=== PATIENT | female | born 1940 | race Two or more races ===

== ENCOUNTER 2022-10-21 10:16 | Inpatient (IN) | payer MEDICARE ==
[2022-10-21 10:47] LABS: Glucose,Whole Blood 158 mg/dL (70-110)
--- NOTE | 2022-10-21 11:21 | ED ---
Chest Pain HPI - General Chief Complaint: Chest Pain Stated Complaint: Chest Pain Time Seen by Provider: 10/21/22 10:25 Source: patient, EMS Mode of arrival: EMS - History of Present Illness Initial Comments: 81-year-old female past history of breast cancer and right-sided lumpectomy, hypertension, diabetes who presents to the emergency department reporting chest pain. States that it started 30 minutes prior to hospital arrival. Pain was located over the left chest wall with radiation to her left jaw and left arm. She has a history of A. fib however had an ablation greater than 10 years ago and has not had any issues. Follows with Dr. Tian. She denies coronary disease. No fevers chills or cough. No alert 70 swelling. No history of DVT or PE. EMS did provide her with 4 aspirins and a nitro. Arrives and states her pain is essentially gone at this time. - Related Data Home Medications Medication Instructions Recorded Confirmed Albuterol Sulfate [Albuterol 2 puff PO RT-Q6H PRN 10/21/22 10/21/22 Sulfate Hfa] Ammonium Lactate Lotion 1 applic TOPICAL BID PRN 10/21/22 10/21/22 [Lac-Hydrin 12% Lotion] Atorvastatin Calcium [Lipitor] 40 mg PO HS 10/21/22 10/21/22 Calcium Carbonate [Tums] 1,500 mg PO DAILY 10/21/22 10/21/22 Cholecalciferol [Vitamin D3 (25 50 mcg PO DAILY 10/21/22 10/21/22 Mcg = 1000 Iu)] Fexofenadine HCl [Astrid Allergy] 180 mg PO DAILY 10/21/22 10/21/22 Glimepiride [Amaryl] 2 mg PO DAILY 10/21/22 10/21/22 Glimepiride [Amaryl] 6 mg PO HS 10/21/22 10/21/22 L.acidoph,Paracasei, B.lactis 1 cap PO DAILY 10/21/22 10/21/22 [Probiotic] Letrozole [Femara] 2.5 mg PO DAILY 10/21/22 10/21/22 Vit C/E/Zn/Coppr/Lutein/Zeaxan 1 cap PO BID 10/21/22 10/21/22 [Preservision Areds 2 Softgel] carvediloL [Coreg] 12.5 mg PO BID 10/21/22 10/21/22 metFORMIN HCL [Glucophage] 1,000 mg PO BID 10/21/22 10/21/22 Previous Rx's Medication Instructions Recorded Apixaban [Eliquis] 2.5 mg PO BID 30 Days #60 tab 10/23/22 Clopidogrel [Plavix] 75 mg PO DAILY@2100 30 Days #30 tab 10/23/22 Isosorbide Mononitrate ER [Imdur] 30 mg PO DAILY 30 Days #30 tab 10/23/22 amLODIPine [Norvasc] 2.5 mg PO BID 30 Days #60 tab 10/23/22 Allergies Allergy/AdvReac Type Severity Reaction Status Date / Time bacitracin Allergy Rash/Hives Verified 10/21/22 11:28 [From Neosporin ([id number])] benzonatate Allergy Rash/Hives Verified 10/21/22 11:28 [From Tessalon Perles] neomycin Allergy Rash/Hives Verified 10/21/22 11:28 [From Neosporin ([id number])] Penicillins Allergy Rash/Hives Verified 10/21/22 11:28 polymyxin B Allergy Rash/Hives Verified 10/21/22 11:28 [From Neosporin ([id number])] raspberry Allergy Rash/Hives Verified 10/21/22 11:28 watermelon Allergy throat Verified 10/21/22 11:28 swelling codeine AdvReac "felt high" Verified 10/21/22 11:28 Review of Systems ROS Statement: Those systems with pertinent positive or pertinent negative responses have been documented in the HPI. ROS Other: All systems not noted in ROS Statement are negative. EKG Findings - EKG Comments: EKG Findings:: EKG demonstrates sinus rhythm with a rate of 72. [place] interval 149. QRS 100. QTC 436. No acute ST segment elevations or depressions Past Medical History Past Medical History: Atrial Fibrillation, Cancer, CVA/TIA, Diabetes Mellitus, Hyperlipidemia, Hypertension Additional Past Medical History / Comment(s): Breast cancer 2002, DMII, Arthritis, TIA, History of Any Multi-Drug Resistant Organisms: None Reported Past Surgical History: Breast Surgery, Cardiac Ablation, Cholecystectomy Additional Past Surgical History / Comment(s): lumpectomy right breast, Past Psychological History: Anxiety Smoking Status: Never smoker Past Alcohol Use History: Rare Past Drug Use History: None Reported General Exam General appearance: alert, in no apparent distress Head exam: Present: atraumatic, normocephalic, normal inspection Eye exam: Present: normal appearance, PERRL, EOMI. Absent: scleral icterus, conjunctival injection, periorbital swelling ENT exam: Present: normal exam, mucous membranes moist Neck exam: Present: normal inspection. Absent: tenderness, meningismus, lymphadenopathy Respiratory exam: Present: normal lung sounds bilaterally. Absent: respiratory distress, wheezes, rales, rhonchi, stridor Cardiovascular Exam: Present: regular rate, normal rhythm, normal heart sounds. Absent: systolic murmur, diastolic murmur, rubs, gallop, clicks GI/Abdominal exam: Present: soft, normal bowel sounds. Absent: distended, tenderness, guarding, rebound, rigid Extremities exam: Present: normal inspection, full ROM, normal capillary refill. Absent: tenderness, pedal edema, joint swelling, calf tenderness Back exam: Present: normal inspection Neurological exam: Present: alert, oriented X3, CN II-XII intact Psychiatric exam: Present: normal affect, normal mood Skin exam: Present: warm, dry, intact, normal color. Absent: rash Course Vital Signs 10/21/22 10/21/22 10/21/22 10:21 10:22 10:33 Temperature 98.1 F Pulse Rate 72 74 Pulse Rate [ 72 Surveillance Monitor ] Pulse Rate [ Pulse Oximetery ] Respiratory 18 17 Rate Blood Pressure 168/84 Blood Pressure [Left Arm] O2 Sat by Pulse 100 99 Oximetry 10/21/22 10/21/22 10/21/22 11:00 12:00 14:33 Temperature Pulse Rate 74 68 66 Pulse Rate [ Surveillance Monitor ] Pulse Rate [ Pulse Oximetery ] Respiratory 14 15 16 Rate Blood Pressure 168/88 155/82 Blood Pressure [Left Arm] O2 Sat by Pulse 99 98 100 Oximetry 10/21/22 15:00 Temperature 98 F Pulse Rate Pulse Rate [ Surveillance Monitor ] Pulse Rate [ 66 Pulse Oximetery ] Respiratory 17 Rate Blood Pressure Blood Pressure 170/78 [Left Arm] O2 Sat by Pulse 99 Oximetry Chest Pain MDM - MDM Was pt. sent in by a medical professional or institution (, PA, [employer], urgent care, hospital, or [facility]...) When possible be specific @ -No Did you speak to anyone other than the patient for history (EMS, parent, family, police, friend...)? What history was obtained from this source @ -No Did you review nursing and triage notes (agree or disagree)? Why? @ -I reviewed and agree with nursing and triage notes Were old charts reviewed (outside hosp., previous admission, EMS record, old EKG, old radiological studies, urgent care reports/EKG's, [facility] records)? Report findings @ -No old charts were reviewed Differential Diagnosis (chest pain, altered mental status, abdominal pain women, abdominal pain men, vaginal bleeding, weakness, fever, dyspnea, syncope, headache, dizziness, GI bleed, back pain, seizure, CVA, palpatations, mental health, musculoskeletal)? @ -chf exacerbation, copd exacerbation, pe, CAP, ACS, stemi EKG interpreted by me (3pts min.). @ -yes, interpreted by myself X-rays interpreted by me (1pt min.). @ -yes, interpreted by myself CT interpreted by me (1pt min.). @ -None done U/S interpreted by me (1pt. min.). @ -None done What testing was considered but not performed or refused? (CT, X-rays, U/S, labs)? Why? @ -None What meds were considered but not given or refused? Why? @ -None Did you discuss the management of the patient with other professionals (professionals i.e. , PA, [employer], lab, RT, psych nurse, director social service, director electrical engineering, teacher, financial services officer, case advocate)? Give summary @ -yes, spoke with Jose/Dr. adan who accepted admission Was smoking cessation discussed for >3mins.? @ -No Was critical care preformed (if so, how long)? @ -No Were there social determinants of health that impacted care today? How? (Homelessness, low income, unemployed, alcoholism, drug addiction, transportation, low edu. Level, literacy, decrease access to med. care, prison, rehab)? @ -No Was there de-escalation of care discussed even if they declined (Discuss DNR or withdrawal of care, Hospice)? DNR status @ -No What co-morbidities impacted this encounter? (DM, HTN, Smoking, COPD, CAD, Cancer, CVA, ARF, Chemo, Hep., AIDS, mental health diagnosis, sleep apnea, morbid obesity)? @ -breast cancer with lumpectomy Was patient admitted / discharged? Hospital course, mention meds given and route, prescriptions, significant lab abnormalities, going to OR and other pertinent info. @ -Upon arrival patient placed in room 13. Thorough history and physical exam is performed. IV access established laboratory studies are conducted. Patient has no pain while within the emergency department. EKG is performed. Troponin negative. Chest x-ray demonstrates no acute process. Recommend admission for cardiology consultation for to patient was agreeable. Spoke with Jose [facility] who agreed to admit the patient. Undiagnosed new problem with uncertain prognosis? @ -Yes Drug Therapy requiring intensive monitoring for toxicity (Heparin, Nitro, Insulin, Cardizem)? @ -No Were any procedures done? @ -No Diagnosis/symptom? @ -acute chest pain Acute, or Chronic, or Acute on Chronic? @ -acute Uncomplicated (without systemic symptoms) or Complicated (systemic symptoms)? @ -complicated Side effects of treatment? @ -No Exacerbation, Progression, or Severe Exacerbation? @ -no Poses a threat to life or bodily function? How? (Chest pain, [place], [place], pneumonia, PE, COPD, DKA, ARF, appy, cholecystitis, CVA, Diverticulitis, Homicidal, Suicidal, threat to staff... and all critical care pts) @ -Yes Disposition Clinical Impression: Chest pain Disposition: ADMITTED IP TO THIS HOSP Condition: Stable Is patient prescribed a controlled substance at d/c from ED?: No Time of Disposition: 13:27 Decision to Admit Reason: Admit from EC Decision Date: 10/21/22 Decision Time: 13:27
[2022-10-21 11:51] LABS: Basophils % (A) 0 %; Eosinophils # (A) 0.2 k/uL (0-0.7); Eosinophils % (A) 2 %; HCT 39.2 % (34.0-46.0); HGB 12.8 gm/dL (11.4-16.0); Lymphocytes # (A) 1.6 k/uL (1.0-4.8); Lymphocytes % (A) 20 %; MCH 29.2 pg (25.0-35.0); MCHC 32.6 g/dL (31.0-37.0); MCV 89.4 fL (80.0-100.0); Mean Platelet Volume 7.9; Monocytes # (A) 0.5 k/uL (0-1.0); Monocytes % (A) 6 %; Neutrophils # (A) 5.7 k/uL (1.3-7.7); Neutrophils % (A) 69 %; Platelet Count 193 k/uL (150-450); RBC 4.39 m/uL (3.80-5.40); RDW 13.8 % (11.5-15.5); WBC 8.2 k/uL (3.8-10.6)
[2022-10-21 12:08] LABS: INR 0.9 (<1.2); Partial Thromboplastin Time 24.1 sec (22.0-30.0)
[2022-10-21 12:17] LABS: ALT 19 U/L (4-34); AST 28 U/L (14-36); African American GFR (CKD) >90 (>60 ml/min/1.73 sqM); Alkaline Phosphatase 84 U/L (38-126); Anion Gap 13 mmol/L; Blood Urea Nitrogen 18 mg/dL (7-17); Calcium 9.1 mg/dL (8.4-10.2); Carbon Dioxide 22 mmol/L (22-30); Chloride 102 mmol/L (98-107); Glucose 192 mg/dL (74-99); Lipase 380 U/L (23-300); Magnesium 1.3 mg/dL (1.6-2.3); Non-African American GFR(CKD) 83 (>60 ml/min/1.73 sqM); Sodium 137 mmol/L (137-145); Total Bilirubin 1.1 mg/dL (0.2-1.3); Total Protein 6.6 g/dL (6.3-8.2)
[2022-10-21 12:29] LABS: Potassium 5.6 mmol/L (3.5-5.1)
--- NOTE | 2022-10-21 12:38 | XR ---
EXAMINATION TYPE: XR chest 2V DATE OF EXAM: 10/21/2022 COMPARISON: NONE HISTORY: Chest pain. TECHNIQUE: Frontal and lateral views of the chest are obtained. FINDINGS: Slightly elevated left hemidiaphragm. There is no focal air space opacity, pleural effusio n, or pneumothorax seen. The cardiac silhouette size is mildly enlarged. The osseous structures ar e intact. Cholecystectomy clips are noted on lateral view. IMPRESSION: Mild cardiomegaly without acute pulmonary process.
[2022-10-21] MEDS ORDERED: NALOXONE 0.4 MG/ML 1 ML VIAL IV PRN (13:27)
--- NOTE | 2022-10-21 13:47 | P.HPIM ---
History of Present Illness H&P Date: 10/21/22 History of Presenting Illness: Patient is a very pleasant 81-year-old female with a past medical history of [id number] diabetes mellitus, hypertension, hyperlipidemia, TIA, breast cancer status post lumpectomy in 2002, and paroxysmal atrial fibrillation status post ablation. Patient presented to the emergency department with the chief complaint of chest pain radiating into her left lower jaw and down her left arm. Patient reports she follows with buildings and grounds director, Dr. Tian but has never had any problems with her heart other than the atrial fibrillation and hasn't had any issues since her ablation nearly 10 years ago. Patient reports the pain in her chest subsided after a few moments but continued in her left lower jaw and down her left arm and shoulder. She denies having any associated symptoms including headache, lightheadedness, dizziness, palpitations, shortness of breath, nausea, vomiting, or experiencing any swelling/numbness/ tingling/focal weakness in her extremities. Patient underwent full evaluation in the emergency department. Upon arrival vital signs stable with temp 98.1F, heart rate 72, respiratory rate 18, blood pressure 168/84, and SpO2 of 100% on room air. EKG was done upon arrival showing normal sinus rhythm at 72 bpm with no noted significant T-wave or ST abnormalities upon personal review and interpretation. Chest x-ray was completed, lungs appear clear and radiology report stating mild cardiomegaly without acute cardiopulmonary process. Labs completed and reviewed. CBC unremarkable. Coagulation profile normal findings. BMP revealing hyperkalemia with potassium of 5.6 and mild prerenal azotemia with elevated BUN of 18. Blood glucose 192. Magnesium low at 1.3. Troponin 0.030. Lipase slightly elevated at 380. Discussed clinical findings, laboratory analysis, and imaging results in detail with the ED physician. Patient being admitted under our services to general medical unit with telemetry with consultation to cardiology. Review of systems: Pertinent positives and negatives as discussed in HPI, a complete review of systems was performed and all other systems are negative. Physical exam: Vital signs reviewed and stable. General: Nontoxic, no distress and appears stated age. Derm: Skin warm and dry, normal coloration for ethnicity. Head: Atraumatic, normocephalic and symmetric. Eyes: EOMs intact, no lid lag, and anicteric sclera Mouth: no lip lesions, mucus membranes moist Cardiovascular: regular rate and rhythm with normal S1S2, systolic murmur, positive posterior tibial pulses bilaterally, and cap refill < 2 seconds. Lungs: Respirations even, regular, and unlabored on room air. Lungs CTA bilaterally, no rhonchi, no rales, no wheezing, and no accessory muscle usage. Abdominal: soft, nontender to palpation, no guarding, no appreciable organomegaly Ext: ROM intact. No gross muscle atrophy, no edema, no contractures Neuro: Speech clear, face symmetrical and CN II-XII grossly intact with no noted focal neuro deficits Psych: Alert and oriented to person, place, time, and situation. Appropriate and pleasant affect. Assessment and Plan of Care: Chest pain radiating into left shoulder and left lower jaw Hyperkalemia Hypomagnesemia Paroxysmal atrial fibrillation status post cardiac ablation Hypertension Hyperlipidemia History of TIA History of breast cancer status post lumpectomy -Upon arrival vital signs stable with temp 98.1F, heart rate 72, respiratory rate 18, blood pressure 168/84, and SpO2 of 100% on room air. -EKG was done upon arrival showing normal sinus rhythm at 72 bpm with no noted significant T-wave or ST abnormalities upon personal review and interpretation. -Chest x-ray was completed, lungs appear clear and radiology report stating mild cardiomegaly without acute cardiopulmonary process. -Labs completed and reviewed. CBC unremarkable. Coagulation profile normal findings. BMP revealing hyperkalemia with potassium of 5.6 and mild prerenal azotemia with elevated BUN of 18. Blood glucose 192. Magnesium low at 1.3. Troponin 0.030. Lipase slightly elevated at 380. -Discussed clinical findings, laboratory analysis, and imaging results in detail with the ED physician. -Patient being admitted under our services to general medical unit with telemetry. -Cardiology consulted -Order placed for aspirin 324 mg by mouth 1 dose followed by daily aspirin of 81 mg. -Order placed for atorvastatin 40 mg nightly. -Home medications reviewed and patient to continue with carvedilol 12.5 mg twice daily and lisinopril 20 mg twice daily discontinued secondary to hyperkalemia. -Order placed for Echocardiogram to be completed -Hypomagnesemia with magnesium of 1.3, Order placed for magnesium sulfate 4 g IVPB for replacement. -Order placed for repeat morning BMP and magnesium to follow-up and monitor for resolution of hyperkalemia and hypomagnesemia. [id number] diabetes mellitus with hyperglycemia -Blood glucose 192, patient reports fasting blood glucose. Hold glimepiride and metformin and place patient on glycemic protocol with NovoLog sliding scale. The patient is admitted with an anticipated greater than 2 midnight stay for evaluation of chest pain CODE STATUS: Full code DVT prophylaxis: Lovenox Discussed with: Patient, RN, and ED physician. Anticipated discharge date: Clinical course to determine Anticipated discharge place: Home Patient was seen independently by Nurse Practitioner. This document was prepared using [employer] dictation software. Please allow for errors in block sawyer while rare they do occur. Paul Tamayo NP rendered care for this patient independently, reviewed the findings and plan as documented in the note above. I did not physically speak with or examine the patient on this date. Past Medical History Past Medical History: Atrial Fibrillation, Cancer, CVA/TIA, Diabetes Mellitus, Hyperlipidemia, Hypertension Additional Past Medical History / Comment(s): Breast cancer 2002, DMII, Arthritis, TIA, History of Any Multi-Drug Resistant Organisms: None Reported Past Surgical History: Breast Surgery, Cardiac Ablation, Cholecystectomy Additional Past Surgical History / Comment(s): lumpectomy right breast, Past Psychological History: Anxiety Smoking Status: Never smoker Past Alcohol Use History: Rare Past Drug Use History: None Reported Medications and Allergies Home Medications Medication Instructions Recorded Confirmed Type Albuterol Sulfate [Albuterol 2 puff PO RT-Q6H PRN 10/21/22 10/21/22 History Sulfate Hfa] Ammonium Lactate Lotion 1 applic TOPICAL BID PRN 10/21/22 10/21/22 History [Lac-Hydrin 12% Lotion] Atorvastatin Calcium [Lipitor] 40 mg PO HS 10/21/22 10/21/22 History Calcium Carbonate [Tums] 1,500 mg PO DAILY 10/21/22 10/21/22 History Cholecalciferol [Vitamin D3 (25 50 mcg PO DAILY 10/21/22 10/21/22 History Mcg = 1000 Iu)] Fexofenadine HCl [Astrid Allergy] 180 mg PO DAILY 10/21/22 10/21/22 History Glimepiride [Amaryl] 2 mg PO DAILY 10/21/22 10/21/22 History Glimepiride [Amaryl] 6 mg PO HS 10/21/22 10/21/22 History L.acidoph,Paracasei, B.lactis 1 cap PO DAILY 10/21/22 10/21/22 History [Probiotic] Letrozole [Femara] 2.5 mg PO DAILY 10/21/22 10/21/22 History Vit C/E/Zn/Coppr/Lutein/Zeaxan 1 cap PO BID 10/21/22 10/21/22 History [Preservision Areds 2 Softgel] carvediloL [Coreg] 12.5 mg PO BID 10/21/22 10/21/22 History lisinopriL [Zestril] 20 mg PO BID 10/21/22 10/21/22 History metFORMIN HCL [Glucophage] 1,000 mg PO BID 10/21/22 10/21/22 History Allergies Allergy/AdvReac Type Severity Reaction Status Date / Time bacitracin Allergy Rash/Hives Verified 10/21/22 11:28 [From Neosporin ([id number])] benzonatate Allergy Rash/Hives Verified 10/21/22 11:28 [From Tessalon Perles] neomycin Allergy Rash/Hives Verified 10/21/22 11:28 [From Neosporin ([id number])] Penicillins Allergy Rash/Hives Verified 10/21/22 11:28 polymyxin B Allergy Rash/Hives Verified 10/21/22 11:28 [From Neosporin ([id number])] raspberry Allergy Rash/Hives Verified 10/21/22 11:28 watermelon Allergy throat Verified 10/21/22 11:28 swelling codeine AdvReac "felt high" Verified 10/21/22 11:28 Physical Exam Vitals: Vital Signs Temp Pulse Pulse Resp BP Pulse Ox 10/21/22 12:00 68 15 98 10/21/22 11:00 74 14 168/88 99 10/21/22 10:33 72 10/21/22 10:22 74 17 99 10/21/22 10:21 98.1 F 72 18 168/84 100 Intake and Output 10/20/22 10/21/22 10/21/22 22:59 06:59 14:59 Other: Weight 88.451 kg Results CBC & Chem 7: 10/21/22 11:26 10/21/22 11:26 Labs: Abnormal Lab Results - Last 24 Hours (Table) 10/21/22 10/21/22 Range/Units 10:46 11:26 Potassium 5.6 H (3.5-5.1) mmol/L BUN 18 H (7-17) mg/dL Glucose 192 H (74-99) mg/dL POC Glucose (mg/dL) 158 H (70-110) mg/dL Magnesium 1.3 L (1.6-2.3) mg/dL Lipase 380 H (23-300) U/L
[2022-10-21] MEDS ORDERED: ASPIRIN 81 MG PO STA (13:50)
[2022-10-21] MEDS ORDERED: DEXTROSE 50% SYRINGE 50 ML IVP PRN ×2 (13:55)
[2022-10-21] MEDS: LACTATED RINGERS 1,000 ML IV SCH (15:30)
[2022-10-21] MEDS: MAGNESIUM SULFATE-D5W PMX 1 GM in DEXTROSE/WATER 1 100ML.BAG IVPB SCH ×4 (15:31→19:58)
[2022-10-21] MEDS ORDERED: HEPARIN SODIUM 1,000 UN/ML (10ML VL) IV PRN (16:28)
[2022-10-21] MEDS ORDERED: HEPARIN SODIUM 1,000 UN/ML (10ML VL) IV ONE (16:28)
[2022-10-21] MEDS ORDERED: HEPARIN SOD,PORK IN 0.45% NACL 25,000 UNIT in 0.45% NACL 1 250ML.BAG IV SCH (17:00)
[2022-10-21] MEDS: carvediloL 12.5 MG TAB PO SCH (17:04)
[2022-10-21 17:38] LABS: Glucose,Whole Blood 244 mg/dL (70-110)
[2022-10-21] MEDS: INSULIN ASPART (NovoLOG) 100 UNIT/ML VIAL SQ SCH ×2 (17:54→22:00)
[2022-10-21] MEDS: ATORVASTATIN 40 MG TAB PO SCH (19:58)
[2022-10-21] MEDS ORDERED: lisinopriL 20 MG TAB PO SCH (21:00)
[2022-10-21 21:22] LABS: Glucose,Whole Blood 226 mg/dL (70-110)
[2022-10-22] MEDS: LACTATED RINGERS 1,000 ML IV SCH ×3 (02:02→19:48)
[2022-10-22] MEDS: INSULIN ASPART (NovoLOG) 100 UNIT/ML VIAL SQ SCH ×4 (06:13→20:52)
[2022-10-22] MEDS: carvediloL 12.5 MG TAB PO SCH ×2 (06:13→18:29)
[2022-10-22 06:17] LABS: Glucose,Whole Blood 176 mg/dL (70-110)
[2022-10-22 08:16] LABS: INR 1.1 (<1.2); Partial Thromboplastin Time 47.9 sec (22.0-30.0)
[2022-10-22] MEDS ORDERED: ASPIRIN 325 MG TAB PO STA (08:26)
[2022-10-22] MEDS ORDERED: ATORVASTATIN 80 MG TAB PO STA (08:26)
[2022-10-22] MEDS ORDERED: ALPRAZolam 0.5 MG TAB PO PRN (08:26)
[2022-10-22] MEDS ORDERED: NITROGLYCERIN SL TABS 0.4 MG TAB SUBLINGUAL PRN (08:26)
[2022-10-22] MEDS ORDERED: ALPRAZolam 0.25 MG TAB PO PRN (08:26)
[2022-10-22] MEDS ORDERED: ENOXAPARIN 40 MG/0.4 ML SYRINGE SQ SCH (09:00)
[2022-10-22] MEDS ORDERED: ASPIRIN 81 MG PO SCH (09:00)
[2022-10-22] MEDS: LETROZOLE 2.5 MG TAB PO SCH (09:21)
[2022-10-22] MEDS: SODIUM CHLORIDE 0.9% 1,000 ML in EMPTY BAG 1 BAG IV SCH ×2 (09:39→19:47)
[2022-10-22] MEDS ORDERED: VERAPAMIL 2.5 MG/ML 2 ML AMP ONE (10:01)
--- NOTE | 2022-10-22 10:06 | P.CRDCN ---
History of Present Illness Consult date: 10/21/22 History of present illness: HISTORY OF PRESENT ILLNESS: This is a 81-year-old female with a past medical history significant for paroxysmal atrial fibrillation with A. fib ablation approximately 14 years ago, hypertension, hyperlipidemia, diabetes, severe aortic stenosis, and moderate aortic regurgitation. Patient follows in the office with Dr. Walker. We have been asked to see the patient in consultation for chest pain. Patient examined at the bedside. Patient states Tuesday she went to the grocery store and on her way home she began to feel dizzy at a stoplight which is unusual for her. She states that she rolled on the window and had some fresh air and started to feel better. She states that she was feeling okay for the rest of the night. She states yesterday morning she woke up around 7:30 and noticed her left arm w as hurting. She states that she sleeps upright in a chair so she was unsure of why she was having pain in her left arm. She states that she went to the bathroom to brush her teeth and noticed that the left side of her jaw was hurting as well. She denied having any chest pain. She denied any shortness of breath. She received aspirin and nitro per EMS with resolution of her symptoms. This morning, the patient denies any chest pain or pressure. The patient does have a history of severe aortic stenosis. The patient states that she is relatively asymptomatic in terms of her and her valve is "just being watched" at this time. * EKG reveals sinus mechanism with no signs of acute ischemia * Chest xray mild cardiomegaly without acute pulmonary process * Laboratory data: WBC 8.2. Hemoglobin 12.8. Platelet count 193. Sodium 137. Potassium 5.6. BUN 18. Creatinine 0.66. Troponin 0.030. ProBNP 326. Lipase 380. * Current home cardiac medications include lisinopril 20 mg twice a day, carvedilol 12.5 mg twice a day, and atorvastatin 40 mg at night * Most recent echocardiogram obtained in the office in March 2022 revealing ejection fraction 55%, moderate aortic regurgitation, severe aortic stenosis, moderate mitral regurgitation, mild tricuspid regurgitation * Patient underwent Lexiscan stress test in April 2020 which was negative for ischemia REVIEW OF SYSTEMS: At the time of my exam: CONSTITUTIONAL: Denies fever or chills. HEENT: Denies blurred vision, vision changes, or eye pain. Denies hemoptysis CARDIOVASCULAR: Denies chest pain. Denies orthopnea. Denies PND. Denies palpitations RESPIRATORY: Denies shortness of breath. GASTROINTESTINAL: Denies abdominal pain. Denies nausea or vomiting. HEMATOLOGIC: Denies bleeding disorders. GENITOURINARY: Denies any blood in urine. SKIN: Denies pruitis. Denies rash. PHYSICAL EXAM: VITAL SIGNS: Reviewed. GENERAL: Well-developed in no acute distress. HEENT: Head is normocephalic. Pupils are equal, round. Sclerae anicteric. Mucous membranes of the mouth are moist. Neck supple. No JVD or thyromegaly LUNGS: Respirations even and unlabored. Lungs essentially clear to auscultation bilaterally. HEART: Regular rate and rhythm. + systolic murmur ABDOMEN: Soft. Nondistended. Nontender. EXTREMITIES: Normal range of motion. No clubbing or cyanosis. Peripheral pulses intact. No lower extremity edema NEUROLOGIC: Awake and alert. Oriented x 3. ASSESSMENT: Non-STEMI Hyperkalemia Elevated lipase Hypertension Hyperlipidemia Diabetes Severe aortic stenosis Moderate aortic regurgitation History of paroxysmal atrial fibrillation with previous ablation History of breast cancer with right-sided lumpectomy PLAN: Obtain 2-D echo to assess cardiac structure and function Continue IV heparin Continue home cardiac medications Patient to undergo cardiac catheterization today with Dr. Walker Further recommendations pending patient's course Nurse practitioner note has been reviewed by physician. Signing provider agrees with the documented findings, assessment, and plan of care. Past Medical History Past Medical History: Atrial Fibrillation, Cancer, CVA/TIA, Diabetes Mellitus, Hyperlipidemia, Hypertension Additional Past Medical History / Comment(s): Breast cancer 2003, DMII, Arthritis, TIA, History of Any Multi-Drug Resistant Organisms: None Reported Past Surgical History: Breast Surgery, Cardiac Ablation, Cholecystectomy Additional Past Surgical History / Comment(s): lumpectomy right breast, Past Psychological History: Anxiety Smoking Status: Never smoker Past Alcohol Use History: Rare Past Drug Use History: None Reported Medications and Allergies Home Medications Medication Instructions Recorded Confirmed Type Albuterol Sulfate [Albuterol 2 puff PO RT-Q6H PRN 10/21/22 10/21/22 History Sulfate Hfa] Ammonium Lactate Lotion 1 applic TOPICAL BID PRN 10/21/22 10/21/22 History [Lac-Hydrin 12% Lotion] Atorvastatin Calcium [Lipitor] 40 mg PO HS 10/21/22 10/21/22 History Calcium Carbonate [Tums] 1,500 mg PO DAILY 10/21/22 10/21/22 History Cholecalciferol [Vitamin D3 (25 50 mcg PO DAILY 10/21/22 10/21/22 History Mcg = 1000 Iu)] Fexofenadine HCl [Astrid Allergy] 180 mg PO DAILY 10/21/22 10/21/22 History Glimepiride [Amaryl] 2 mg PO DAILY 10/21/22 10/21/22 History Glimepiride [Amaryl] 6 mg PO HS 10/21/22 10/21/22 History L.acidoph,Paracasei, B.lactis 1 cap PO DAILY 10/21/22 10/21/22 History [Probiotic] Letrozole [Femara] 2.5 mg PO DAILY 10/21/22 10/21/22 History Vit C/E/Zn/Coppr/Lutein/Zeaxan 1 cap PO BID 10/21/22 10/21/22 History [Preservision Areds 2 Softgel] carvediloL [Coreg] 12.5 mg PO BID 10/21/22 10/21/22 History lisinopriL [Zestril] 20 mg PO BID 10/21/22 10/21/22 History metFORMIN HCL [Glucophage] 1,000 mg PO BID 10/21/22 10/21/22 History Allergies Allergy/AdvReac Type Severity Reaction Status Date / Time bacitracin Allergy Rash/Hives Verified 10/21/22 11:28 [From Neosporin ([id number])] benzonatate Allergy Rash/Hives Verified 10/21/22 11:28 [From Tessalon Perles] neomycin Allergy Rash/Hives Verified 10/21/22 11:28 [From Neosporin ([id number])] Penicillins Allergy Rash/Hives Verified 10/21/22 11:28 polymyxin B Allergy Rash/Hives Verified 10/21/22 11:28 [From Neosporin ([id number])] raspberry Allergy Rash/Hives Verified 10/21/22 11:28 watermelon Allergy throat Verified 10/21/22 11:28 swelling codeine AdvReac "felt high" Verified 10/21/22 11:28 Physical Exam Vitals: Vital Signs Temp Pulse Pulse Resp BP Pulse Ox 10/21/22 12:00 68 15 98 10/21/22 11:00 74 14 168/88 99 10/21/22 10:33 72 10/21/22 10:22 74 17 99 10/21/22 10:21 98.1 F 72 18 168/84 100 Intake and Output 10/20/22 10/21/22 10/21/22 22:59 06:59 14:59 Other: Weight 88.451 kg Results 10/21/22 11:26 10/21/22 11:26 Cardiac Enzymes 10/21/22 10/21/22 Range/Units 11:26 11:26 AST 28 (14-36) U/L Troponin I 0.030 (0.000-0.034) ng/mL Coagulation 10/21/22 Range/Units 11:26 PT 10.0 (9.0-12.0) sec APTT 24.1 (22.0-30.0) sec CBC 10/21/22 Range/Units 11:26 WBC 8.2 (3.8-10.6) k/uL RBC 4.39 (3.80-5.40) m/uL Hgb 12.8 (11.4-16.0) gm/dL Hct 39.2 (34.0-46.0) % Plt Count 193 (150-450) k/uL Comprehensive Metabolic Panel 10/21/22 Range/Units 11:26 Sodium 137 (137-145) mmol/L Potassium 5.6 H (3.5-5.1) mmol/L Chloride 102 (98-107) mmol/L Carbon Dioxide 22 (22-30) mmol/L BUN 18 H (7-17) mg/dL Creatinine 0.66 (0.52-1.04) mg/dL Glucose 192 H (74-99) mg/dL Calcium 9.1 (8.4-10.2) mg/dL AST 28 (14-36) U/L ALT 19 (4-34) U/L Alkaline Phosphatase 84 (38-126) U/L Total Protein 6.6 (6.3-8.2) g/dL Albumin 4.0 (3.5-5.0) g/dL Current Medications Generic Name Dose Route Start Last Admin Trade Name Ashq PRN Reason Stop Dose Admin Aspirin 81 mg 10/22/22 09:00 Aspirin 81 Mg PO DAILY [facility] Atorvastatin Calcium 40 mg 10/21/22 21:00 Atorvastatin 40 Mg Tab PO HS [facility] Carvedilol 12.5 mg 10/21/22 17:30 Carvedilol 12.5 Mg Tab PO AC-BID [facility] Dextrose/Water 25 ml 10/21/22 13:55 Dextrose 50% Syringe 50 Ml IVP PER PROTOCOL PRN Hypoglycemia Protocol Dextrose/Water 50 ml 10/21/22 13:55 Dextrose 50% Syringe 50 Ml IVP PER PROTOCOL PRN Hypoglycemia Protocol Enoxaparin Sodium 40 mg 10/22/22 09:00 Enoxaparin 40 Mg/0.4 Ml Syringe SQ DAILY [facility] Magnesium Sulfate/Dextrose 1 100 mls @ 100 mls/hr 10/21/22 14:00 gm/ IV Solution IVPB 10/21/22 17:59 Q1H [facility] Lactated Ringer's 1,000 mls @ 100 mls/hr 10/21/22 14:00 Lactated Ringers IV .Q10H [facility] Insulin Aspart 0 unit 10/21/22 17:30 Insulin Aspart (Novolog) 100 Unit/Ml Vial SQ ACHS [facility] Protocol Letrozole 2.5 mg 10/22/22 09:00 Letrozole 2.5 Mg Tab PO DAILY [facility] Naloxone HCl 0.2 mg 10/21/22 13:27 Naloxone 0.4 Mg/Ml 1 Ml Vial IV Q2M PRN Opioid Reversal Intake and Output 10/20/22 10/21/22 10/21/22 22:59 06:59 14:59 Other: Weight 88.451 kg Patient Weight 10/22/22 06:59 Weight 88.451 kg 10/21/22 11:26 10/21/22 11:26
[2022-10-22] MEDS ORDERED: fentaNYL (PF) 50 MCG/ML 2 ML AMP ONE (10:27)
[2022-10-22] MEDS ORDERED: IV FLUID CONTINUATION 1,000 ML IV ONE (10:30)
[2022-10-22] MEDS: fentaNYL (PF) 50 MCG/ML 2 ML AMP IV ONE ×2 (10:35→11:11)
[2022-10-22] MEDS ORDERED: MIDAZOLAM 2 MG/2 ML VIAL IV ONE (10:35)
[2022-10-22] MEDS ORDERED: LIDOCAINE 1% INJ 10MG/ML (5 ML VIAL-PF) SQ ONE (10:38)
[2022-10-22] MEDS ORDERED: LIDOCAINE 1% INJ 10MG/ML (20 ML MDV) ONE (10:46)
[2022-10-22] MEDS ORDERED: IOPAMIDOL-370 200ML BTL INJ ONE (11:11)
[2022-10-22 11:12] LABS: Basophils # (A) 0.06 X 10*3/uL (0.00-0.10); Basophils % (A) 0.8 %; Eosinophils # (A) 0.12 X 10*3/uL (0.04-0.35); Eosinophils % (A) 1.7 %; HCT 36.2 % (37.2-46.3); HGB 11.8 g/dL (12.0-15.0); Immature Grans, Automated 0.4 %; Lymphocytes # (A) 1.49 X 10*3/uL (0.90-5.00); Lymphocytes % (A) 21.1 %; MCH 29.5 pg (27.0-32.0); MCHC 32.6 g/dL (32.0-37.0); MCV 90.5 fL (80.0-97.0); Mean Platelet Volume 10.6 fL (9.5-12.2); Monocytes # (A) 0.71 X 10*3/uL (0.20-1.00); Monocytes % (A) 10.1 %; NRBC Per 100 WBC 0 /100 WBCS (0.0-0.0); Neutrophils # (A) 4.65 X 10*3/uL (1.80-7.70); Neutrophils % (A) 65.9 %; Platelet Count 184 X 10*3/uL (140-440); RDW 13.4 % (11.5-14.5); WBC 7.06 X 10*3/uL (4.50-10.00)
[2022-10-22 12:12] LABS: Magnesium 1.8 mg/dL (1.5-2.4)
[2022-10-22 12:32] LABS: African American GFR (CKD) 80.1 (60.0-200.0); BUN/Creat Ratio 16.25 Ratio (12.00-20.00); Non-African American GFR(CKD) 69.1 (60.0-200.0); Potassium 4.7 mmol/L (3.5-5.5)
[2022-10-22 12:35] LABS: Glucose,Whole Blood 176 mg/dL (70-110)
--- NOTE | 2022-10-22 12:54 | P.PN ---
Subjective Progress Note Date: 10/22/22 Hospital course: Patient is a very pleasant 81-year-old female with a past medical history of ies-xkkpjyo-fzxsmpold diabetes mellitus, hypertension, hyperlipidemia, TIA, breast cancer status post lumpectomy in 2002, and paroxysmal atrial fibrillation status post ablation. Patient presented to the emergency department with the chief complaint of chest pain radiating into her left lower jaw and down her left arm. Patient reports she follows with primary mill roller, Dr. Tian but has never had any problems with her heart other than the atrial fibrillation and has n't had any issues since her ablation nearly 10 years ago. Patient reports the pain in her chest subsided after a few moments but continued in her left lower jaw and down her left arm and shoulder. She denies having any associated symptoms including headache, lightheadedness, dizziness, palpitations, shortness of breath, nausea, vomiting, or experiencing any swelling/numbness/tingling/focal weakness in her extremities. Patient underwent full evaluation in the emergency department. Upon arrival vital signs stable with temp 98.1F, heart rate 72, respiratory rate 18, blood pressure 168/84, and SpO2 of 100% on room air. EKG was done upon arrival showing normal sinus rhythm at 72 bpm with no noted significant T-wave or ST abnormalities upon personal review and interpretation. Chest x-ray was completed, lungs appear clear and radiology report stating mild cardiomegaly without acute cardiopulmonary process. Labs completed and reviewed. CBC unremarkable. Coagulation profile normal findings. BMP revealing hyperkalemia with potassium of 5.6 and mild prerenal azotemia with elevated BUN of 18. Blood glucose 192. Magnesium low at 1.3. Troponin 0.030. Lipase slightly elevated at 380. Discussed clinical findings, laboratory analysis, and imaging results in detail with the ED phys porsche. Patient being admitted under our services to general medical unit with telemetry with consultation to cardiology. Troponin significantly elevating throughout the night. Troponins elevating from 0.0302 0.410, 1.760, and 5.050. Patient was started on IV heparin. Repeat EKG completed again showing normal sinus rhythm with no T-wave or ST abnormalities upon personal review and interpretation. Cardiology evaluated and planning to take patient for cardiac cath later today. Physical exam: Vital signs reviewed and stable. General: Nontoxic, no distress and appears stated age. Derm: Skin warm and dry, normal coloration for ethnicity. Head: Atraumatic, normocephalic and symmetric. Eyes: EOMs intact, no lid lag, and anicteric sclera Mouth: no lip lesions, mucus membranes moist Cardiovascular: regular rate and rhythm with normal S1S2, systolic murmur, positive posterior tibial pulses bilaterally, and cap refill < 2 seconds. Lungs: Respirations even, regular, and unlabored on room air. Lungs CTA bilaterally, no rhonchi, no rales, no wheezing, and no accessory muscle usage. Abdominal: soft, nontender to palpation, no guarding, no appreciable organomegaly Ext: ROM intact. No gross muscle atrophy, no edema, no contractures Neuro: Speech clear, face symmetrical and CN II-XII grossly intact with no noted focal neuro deficits Psych: Alert and oriented to person, place, time, and situation. Appropriate and pleasant affect. Assessment and Plan of Care: NSTEMI Chest pain radiating into left shoulder and left lower jaw Hyperkalemia Hypomagnesemia Paroxysmal atrial fibrillation status post cardiac ablation Hypertension Hyperlipidemia History of TIA History of breast cancer status post lumpectomy -Troponins significantly elevating throughout the night. Troponins elevating from 0.0302 0.410, 1.760, and 5.050. -Patient was started on IV heparin. Repeat EKG completed again showing normal sinus rhythm with no T-wave or ST abnormalities upon personal review and interpretation. -Cardiology evaluated and planning to take patient for cardiac cath later today. -Continue daily medication regimen with aspirin, atorvastatin, and carvedilol. -Order placed for Echocardiogram to be completed -Hypomagnesemia with magnesium of 1.3, Order placed for magnesium sulfate 4 g IVPB for replacement. -Order placed for repeat morning BMP and magnesium to follow-up and monitor for resolution of hyperkalemia and hypomagnesemia. Azc-zytnixu-sstgchniw diabetes mellitus with hyperglycemia -Fasting Blood glucose this morning 194. Hold glimepiride and metformin and place patient on glycemic protocol with NovoLog sliding scale. CODE STATUS: Full code DVT prophylaxis: Lovenox Discussed with: Patient, RN, and ED physician. Anticipated discharge date: Clinical course to determine Anticipated discharge place: Home Patient was seen independently by Nurse Practitioner. This document was prepared using [employer] dictation software. Please allow for errors in field hand while rare they do occur. Objective - Vital Signs Vital signs: Vital Signs Temp 98 F 05/12/23 07:00 Pulse 69 10/22/22 07:00 Resp 16 10/22/22 07:00 BP 157/79 10/22/22 07:00 Pulse Ox 97 10/22/22 07:00 FiO2 Intake & Output 10/21/22 10/22/22 10/22/22 18:59 06:59 18:59 Weight 88.451 kg Other: Voiding Method Toilet Toilet # Voids 0 1 - Labs CBC & Chem 7: 10/22/22 07:27 10/22/22 07:27 Labs: Abnormal Lab Results - Last 24 Hours (Table) 10/21/22 10/21/22 10/21/22 Range/Units 10:46 11:26 14:26 APTT (22.0-30.0) sec Potassium 5.6 H (3.5-5.1) mmol/L BUN 18 H (7-17) mg/dL Glucose 192 H (74-99) mg/dL POC Glucose (mg/dL) 158 H (70-110) mg/dL Magnesium 1.3 L (1.6-2.3) mg/dL Troponin I 0.410 H* (0.000-0.034) ng/mL Lipase 380 H (23-300) U/L 10/21/22 10/21/22 10/21/22 Range/Units 17:37 17:55 21:21 APTT (22.0-30.0) sec Potassium (3.5-5.1) mmol/L BUN (7-17) mg/dL Glucose (74-99) mg/dL POC Glucose (mg/dL) 244 H 226 H (70-110) mg/dL Magnesium (1.6-2.3) mg/dL Troponin I 1.760 H* (0.000-0.034) ng/mL Lipase (23-300) U/L 10/21/22 10/21/22 10/22/22 Range/Units 23:15 23:15 06:06 APTT 59.5 H (22.0-30.0) sec Potassium (3.5-5.1) mmol/L BUN (7-17) mg/dL Glucose (74-99) mg/dL POC Glucose (mg/dL) 176 H (70-110) mg/dL Magnesium (1.6-2.3) mg/dL Troponin I 5.050 H* (0.000-0.034) ng/mL Lipase (23-300) U/L 10/22/22 Range/Units 07:27 APTT 47.9 H (22.0-30.0) sec Potassium (3.5-5.1) mmol/L BUN (7-17) mg/dL Glucose (74-99) mg/dL POC Glucose (mg/dL) (70-110) mg/dL Magnesium (1.6-2.3) mg/dL Troponin I (0.000-0.034) ng/mL Lipase (23-300) U/L
[2022-10-22] MEDS ORDERED: CLOPIDOGREL 75 MG TAB PO SCH ×2 (13:00→13:48)
--- NOTE | 2022-10-22 14:26 | CT ---
EXAMINATION TYPE: CT brain wo con CT DLP: 1144.80 mGycm, Automated exposure control for dose reduction was used. DATE OF EXAM: 10/22/2022 2:19 PM COMPARISON: None. CLINICAL INDICATION:Female, 81 years old with history of right hand numbness, Rt hand numbness TECHNIQUE: Brain: Multiple axial CT images of the brain were obtained without IV contrast. Coronal and sagittal reformats reviewed. FINDINGS: Brain: Extra-axial spaces: No abnormal extra-axial fluid collections. Ventricular system: Within normal limits Cerebral parenchyma: Cerebral atrophy. No acute intraparenchymal hemorrhage or mass effect. Remote in farct involving the right frontal lobe with encephalomalacia demonstrated. The bustamante-white junction is well differentiated. Scattered hypoattenuating areas are seen within the white matter. Cerebellum: Unremarkable. Mass effect: No evidence of midline shift. Intracranial vasculature: Atherosclerotic calcifications of the intracranial vessels. Soft tissues: Normal. Calvarium/osseous structures: No depressed skull fracture. Paranasal sinuses and mastoid air cells: Maxillary sinuses are clear. Mild mucosal thickening of the right maxillary sinus. Visualized orbits: Bilateral aphakia IMPRESSION: 1. No acute intracranial process. 2. 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 3. Nonspecific white matter changes, likely secondary to chronic small vessel ischemic disease.
[2022-10-22 17:17] LABS: Glucose,Whole Blood 143 mg/dL (70-110)
[2022-10-22] MEDS: ATORVASTATIN 40 MG TAB PO SCH (19:48)
[2022-10-22 20:50] LABS: Glucose,Whole Blood 284 mg/dL (70-110)
--- NOTE | 2022-10-22 21:34 | CC ---
CARDIAC CATHETERIZATION REPORT INDICATION: Ffr-[id number]-jlleeys elevation MA. PROCEDURE NOTE: After obtaining informed consent, left heart catheterization and coronary angiogram were performed via the right femoral artery using size 3.5 right and left Joe catheters. The patient tolerated the procedure well without any obvious immediate complications. Femoral angiogram was performed, and decision was made for manual hemostasis. The patient received moderate conscious sedation. Total sedation time was 31 minutes. I initially attempted right radial artery access. I introduced a 6-Armenian sheath into the right radial artery but did not get good flow from the sheath; hence, I decided to proceed with the femoral catheterization. The procedures were completed uneventfully, and we did not have any bleeding or hematoma at the radial artery access site at the end of the procedure. FINDINGS: 1. HEMODYNAMICS: Central aortic pressure is 140/70 mmHg. 2. ANGIOGRAPHIC DATA: a.Right coronary artery: Right coronary artery is a large dominant vessel and is free of significant stenosis. b.Left main coronary artery is a normal-sized vessel and is free of stenosis. Divides into left anterior descending coronary artery and circumflex coronary artery. LAD and its branches and circumflex coronary artery and its branches are free of significant stenosis. CONCLUSION: No evidence of significant obstructive CAD. I checked a D-dimer on her, that came back normal. The exact etiology for chest pain and elevated troponin is unclear, could be due to plaque rupture. I will obtain a 2D echo on her to assess her LV function and to rule out any takotsubo syndrome on her. She has severe aortic stenosis, but it does not explain her clinical presentation. MMODL / IJN: [id number] /
--- NOTE | 2022-10-23 01:20 | CA ---
Transthoracic Echo Report Name: Melony Arango Age: 81 Gender: F : 1940 Exam Date: 10/22/2022 14:25 Exam Location: [place] [facility] Ht (in): 65 Wt (lb): 195 Ordering Physician: Paul Tamayo Attending/Referring Phys: [employer] Team Member Jayshree Fisher RDCS Procedure CPT: Indications: nstemi Cardiac Hx: Technical Quality: Fair Contrast 1: Total Dose (mL): Contrast 2: Total Dose (mL): MEASUREMENTS (Male / Female) Normal Values 2D ECHO LV Diastolic Diameter PLAX 3.7 cm 4.2 - 5.9 / 3.9 - 5.3 cm LV Systolic Diameter PLAX 2.6 cm IVS Diastolic Thickness 1.9 cm 0.6 - 1.0 / 0.6 - 0.9 cm LVPW Diastolic Thickness 1.7 cm 0.6 - 1.0 / 0.6 - 0.9 cm LV Relative Wall Thickness 0.9 RV Internal Dim ED PLAX 2.8 cm LVOT Diameter 1.4 cm LA Volume 69.6 cm??? 18 - 58 / 22 - 52 cm??? M-MODE Aortic Root Diameter MM 2.4 cm LA Systolic Diameter MM 3.5 cm LA Ao Ratio MM 1.4 DOPPLER AV Peak Velocity 472.1 cm/s AV Peak Gradient 89.1 mmHg AV Mean Velocity 372.3 cm/s AV Mean Gradient 58.7 mmHg AV Velocity Time Integral 119.9 cm AI Peak Velocity 468.0 cm/s AI Peak Gradient 87.6 mmHg AI Pressure Half Time 379.6 ms LVOT Peak Velocity 94.3 cm/s LVOT Peak Gradient 3.6 mmHg LVOT Velocity Time Integral 25.0 cm LVOT Stroke Volume 40.2 cm??? LVOT Stroke Volume Index 20.6 ml/m??? LVOT Cardiac Index 1435.7 cm???/min???m??? AV Area Cont Eq vti 0.3 cm??? AV Area Cont Eq pk 0.3 cm??? MV Peak Velocity 177.8 cm/s MV Peak Gradient 12.6 mmHg MV Mean Velocity 90.1 cm/s MV Mean Gradient 4.2 mmHg MV Velocity Time Integral 28.8 cm MV Area PHT 5.1 cm??? Mitral E Point Velocity 68.2 cm/s Mitral A Point Velocity 165.9 cm/s Mitral E to A Ratio 0.4 MV Deceleration Time 148.8 ms MV E' Velocity 3.0 cm/s Mitral E to MV E' Ratio 22.6 TR Peak Velocity 205.9 cm/s TR Peak Gradient 17.0 mmHg Right Ventricular Systolic Press 21.2 mmHg FINDINGS Left Ventricle Severely increased left ventricular wall thickness. Left ventricular cavity size normal. Normal left ventricular systolic function with no obvious regional wall motion abnormalities. Left ventricular ejection fraction is estimated at 55-60 %. Right Ventricle Normal right ventricular size and function. Right ventricular systolic pressure within normal limits. Right Atrium Normal right atrial size. Left Atrium Moderately increased left atrial volume. Mildly increased left atrial area. Mitral Valve Mitral valve thickened. Moderate mitral annular calcification. Pxrv-xg-[id number] mitral regurgitation. Aortic Valve Severe aortic stenosis with a peak velocity of 4.7 m/s, peak gradient 89 mmHg, mean gradient 59 mmHg, and estimated aortic valve area of 0.3 cm???. Mild-to- moderate aortic regurgitation. Tricuspid Valve Structurally normal tricuspid valve. Kfhz-[id number] tricuspid regurgitation. Pulmonic Valve Structurally normal pulmonic valve. Pericardium No pericardial effusion. Aorta Normal size aortic root and proximal ascending aorta. CONCLUSIONS Severe increased left ventricular wall thickness Left ventricular ejection fraction 55-60% Moderately dilated left atrium [id number]-[id number] mitral regurgitation Severe aortic stenosis Mild to moderate tricuspid regurgitation RVSP 21 Previewed by: Dr. Raji Rivera DO (Electronically Signed) Final Date: 23 Oct 2022 01:20
[2022-10-23] MEDS: LACTATED RINGERS 1,000 ML IV SCH (05:14)
[2022-10-23] MEDS: SODIUM CHLORIDE 0.9% 1,000 ML in EMPTY BAG 1 BAG IV SCH (05:14)
[2022-10-23 06:38] LABS: Glucose,Whole Blood 161 mg/dL (70-110)
[2022-10-23] MEDS: INSULIN ASPART (NovoLOG) 100 UNIT/ML VIAL SQ SCH ×2 (06:42→13:02)
[2022-10-23] MEDS: carvediloL 12.5 MG TAB PO SCH (06:43)
[2022-10-23] MEDS ORDERED: HEPARIN SODIUM,PORCINE 2,500 UNIT in SODIUM CHLORIDE 0.9% 250 ML IRRIGATION PRN (07:00)
[2022-10-23] MEDS ORDERED: HEPARIN SODIUM,PORCINE 10,000 UNIT in SODIUM CHLORIDE 0.9% 1,000 ML IRRIGATION PRN (07:00)
[2022-10-23 07:23] VITALS: PULSE 69
[2022-10-23] MEDS ORDERED: ISOSORBIDE MONONITRATE ER 30 MG TAB.ER.24H PO SCH (09:00)
[2022-10-23] MEDS ORDERED: amLODIPine 2.5 MG TAB PO SCH (09:00)
--- NOTE | 2022-10-23 09:30 | P.CNNES ---
History of Present Illness Consult date: 10/23/22 Requesting physician: Paul Tamayo Reason for Consult: new onset right hand numbness History of Present Illness: Is an 81-year-old woman with history of remote TIA, severe aortic stenosis, age are fibrillation status post ablation about 13 years ago, diabetes mellitus and hypertension who presented emergency department because of chest pain. Patient stated that this is day she noticed that she had dizziness and was all of a sudden that mimic the A. fib she had. She denies any nausea, vomiting any ringing in the ears or hearing loss and that the dizziness was very brief again and mimic that her history of a bit when she had in the past. The dizziness as stated earlier was very brief and resolved within the next day she knows that she is having pain from her left armpit all the way down to the hand with left jaw pain so she presented that because of the chest pain. She received aspirin nitroglycerin on rounds and that resolved the issue. Yesterday she had a cardiac cath initially they attempted going through the right wrist but that her was not accessible so they had to do another round but then after that the procedure he noticed that the right hand was numb and was brief but denied any other new neurological issues associate with that. Her numbness again was brief and it resolved and she has not had any other further neurological issues. She stated that the one she was having the cardiac cath they put some sort of a pad on her hand and was unsure what what she received what medication she received. She felt the numbness was only ventral of her hand. She states that she does not take aspirin or any antiplatelet or anticoagulation. She takes statin at home. Since she takes Lipitor 40 mg daily. Past was told that she needs the aortic valve replaced. Some of the workup during during this hospital visit consisted of: SONAL globin A1c 7.6. CT the head is reported as remote right frontal lobe infarct with encephalomalacia emonstrated. Nonspecific white matter changes likely secondary due to chronic small vessel ischemic disease. I personally reviewed the CT and agree with her report. 2-D echo was reported as a ejection fraction 55-60%. Moderately dilated left atrium. Severe aortic stenosis. Cardiac cath is reported as no evidence of significant obstructive coronary artery disease. Past Medical History Past Medical History: Atrial Fibrillation, Cancer, CVA/TIA, Diabetes Mellitus, Hyperlipidemia, Hypertension Additional Past Medical History / Comment(s): Breast cancer 2002, DMII, Arthritis, TIA, History of Any Multi-Drug Resistant Organisms: None Reported Past Surgical History: Breast Surgery, Cardiac Ablation, Cholecystectomy Additional Past Surgical History / Comment(s): lumpectomy right breast, Past Psychological History: Anxiety Smoking Status: Never smoker Past Alcohol Use History: Rare Past Drug Use History: None Reported Medications and Allergies Home Medications Medication Instructions Recorded Confirmed Type Albuterol Sulfate [Albuterol 2 puff PO RT-Q6H PRN 10/21/22 10/21/22 History Sulfate Hfa] Ammonium Lactate Lotion 1 applic TOPICAL BID PRN 10/21/22 10/21/22 History [Lac-Hydrin 12% Lotion] Atorvastatin Calcium [Lipitor] 40 mg PO HS 10/21/22 10/21/22 History Calcium Carbonate [Tums] 1,500 mg PO DAILY 10/21/22 10/21/22 History Cholecalciferol [Vitamin D3 (25 50 mcg PO DAILY 10/21/22 10/21/22 History Mcg = 1000 Iu)] Fexofenadine HCl [Astrid Allergy] 180 mg PO DAILY 10/21/22 10/21/22 History Glimepiride [Amaryl] 2 mg PO DAILY 10/21/22 10/21/22 History Glimepiride [Amaryl] 6 mg PO HS 10/21/22 10/21/22 History L.acidoph,Paracasei, B.lactis 1 cap PO DAILY 10/21/22 10/21/22 History [Probiotic] Letrozole [Femara] 2.5 mg PO DAILY 10/21/22 10/21/22 History Vit C/E/Zn/Coppr/Lutein/Zeaxan 1 cap PO BID 10/21/22 10/21/22 History [Preservision Areds 2 Softgel] carvediloL [Coreg] 12.5 mg PO BID 10/21/22 10/21/22 History lisinopriL [Zestril] 20 mg PO BID 10/21/22 10/21/22 History metFORMIN HCL [Glucophage] 1,000 mg PO BID 10/21/22 10/21/22 History Allergies Allergy/AdvReac Type Severity Reaction Status Date / Time bacitracin Allergy Rash/Hives Verified 10/21/22 11:28 [From Neosporin ([id number])] benzonatate Allergy Rash/Hives Verified 10/21/22 11:28 [From Tessalon Perles] neomycin Allergy Rash/Hives Verified 10/21/22 11:28 [From Neosporin ([id number])] Penicillins Allergy Rash/Hives Verified 10/21/22 11:28 polymyxin B Allergy Rash/Hives Verified 10/21/22 11:28 [From Neosporin ([id number])] raspberry Allergy Rash/Hives Verified 10/21/22 11:28 watermelon Allergy throat Verified 10/21/22 11:28 swelling codeine AdvReac "felt high" Verified 10/21/22 11:28 Physical Examination - Vital Signs Vital Signs: Vital Signs Temp Pulse Pulse Resp BP Pulse Ox 10/23/22 06:50 97.6 F 69 16 143/69 99 10/23/22 02:34 98.4 F 67 18 134/68 97 10/22/22 20:00 16 10/22/22 18:20 79 16 127/71 99 10/22/22 15:35 80 16 155/59 98 10/22/22 14:35 75 18 144/78 99 10/22/22 13:35 78 16 136/81 100 10/22/22 13:05 72 18 150/81 98 10/22/22 12:35 69 16 127/62 95 10/22/22 12:20 66 18 130/59 99 10/22/22 12:05 70 16 117/68 99 10/22/22 11:50 98.4 F 67 18 149/74 100 Intake and Output 10/22/22 10/23/22 10/23/22 22:59 06:59 14:59 Other: Voiding Method Toilet # Voids 1 2 GENERAL: The patient is sitting in a recliner chair and is not in acute distress. CHEST: The heart rate is regular rate rhythm. No murmurs to auscultation. LUNG: Clear to auscultation bilaterally no wheezing noted throughout. Not labored breathing. ABDOMEN/GI: Bowel sounds present in all 4 quadrants. No tenderness to palpation throughout. NEUROLOGICAL: Higher mental function: The patient is awake, alert, oriented to self, place and time. Patient is following commands. No aphasia and no neglect. Cranial nerves: The pupils are round, equal and reactive to light and accommodation. Visual dozier are full to confrontation throughout. Extraocular movement is intact no nystagmus is noted. Facial sensation is normal to touch throughout. The facial strength is normal throughout. Hearing is normal bilaterally to hand rub. Tongue is midline and moved [id number] without any difficulty. No dysarthria is noted. Shoulder shrug is normal bilaterally. Motor: The strength is 5 over 5 throughout. Normal tone and bulk. Cerebellum: Normal finger to nose bilaterally. Sensation: Sensation is normal to touch throughout. Reflexes (right/left):2+ throughout except ankles are 1+. Plantars are downgoing bilaterally. Results - Laboratory Findings CBC and BMP: 10/22/22 07:10/22/22 07:27 Abnormal Lab Findings: Abnormal Labs 10/21/22 10/21/22 10/21/22 10:46 11:26 14:26 RBC Hgb Hct APTT Potassium 5.6 H BUN 18 H Glucose 192 H POC Glucose (mg/dL) 158 H Hemoglobin A1c Magnesium 1.3 L Troponin I 0.410 H* Lipase 380 H 10/21/22 10/21/22 10/21/22 17:37 17:55 21:21 RBC Hgb Hct APTT Potassium BUN Glucose POC Glucose (mg/dL) 244 H 226 H Hemoglobin A1c Magnesium Troponin I 1.760 H* Lipase 10/21/22 10/21/22 10/22/22 23:15 23:15 06:06 RBC Hgb Hct APTT 59.5 H Potassium BUN Glucose POC Glucose (mg/dL) 176 H Hemoglobin A1c Magnesium Troponin I 5.050 H* Lipase 10/22/22 10/22/22 10/22/22 07:27 07:27 07:27 RBC 4.00 L Hgb 11.8 L Hct 36.2 L APTT Potassium BUN Glucose 194 H POC Glucose (mg/dL) Hemoglobin A1c 7.6 H Magnesium Troponin I Lipase 10/22/22 10/22/22 10/22/22 07:27 12:33 17:15 RBC Hgb Hct APTT 47.9 H Potassium BUN Glucose POC Glucose (mg/dL) 176 H 143 H Hemoglobin A1c Magnesium Troponin I Lipase 10/22/22 10/23/22 10/23/22 20:49 06:13 06:37 RBC Hgb Hct APTT 19.5 L Potassium BUN Glucose POC Glucose (mg/dL) 284 H 161 H Hemoglobin A1c Magnesium Troponin I Lipase Assessment and Plan Assessment: Transient right hand (ventral) numbness due to result of surgical access site during cardiac cath. Cannot exclusive rule out TIA but feel more due to surgical access site. 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 Patient is started on Eliquis 2.5 mg 1 tablet twice a day as well as Plavix 75 mg daily (both are new during this admission). Continue Lipitor 40 mg daily at bedtime Every 4 hours neuro checks On cardiac monitoring We'll defer the rest of the medical management to the cardiology and primary t eam DVT prophylaxis the patient is on Eliquis. The plan was discussed with the patient and primary team Thank you for the consultation. Dr. Mak will start neurology service tomorrow A.M. Time with Patient: Greater than 30
[2022-10-23] MEDS: LETROZOLE 2.5 MG TAB PO SCH (10:03)
--- NOTE | 2022-10-23 11:12 | US ---
EXAMINATION TYPE: US carotid duplex BILAT DATE OF EXAM: 10/23/2022 COMPARISON: NONE CLINICAL INDICATION: Female, 81 years old with history of stroke; Stroke, dizziness TECHNIQUE: Carotid duplex ultrasound examination. Indirect Doppler criteria was utilized. FINDINGS: EXAM MEASUREMENTS: RIGHT: Peak Systolic Velocity (PSV) cm/sec ----- Right CCA: 79.9 ----- Right ICA: 114 ----- Right ECA: 119 ICA/CCA ratio: 1.43 RIGHT: End Diastole cm/sec ----- Right CCA: 11.7 ----- Right ICA: 19.5 ----- Right ECA: 0.0 LEFT: Peak Systolic Velocity (PSV) cm/sec ----- Left CCA: 84.4 ----- Left ICA: 141 ----- Left ECA: 104 ICA/CCA ratio: 1.55 LEFT: End Diastole cm/sec ----- Left CCA: 14.3 ----- Left ICA: 29.3 ----- Left ECA: 0.0 VERTEBRALS (direction of flow): Right Vertebral: Antegrade Left Vertebral: Antegrade Rhythm: Normal SALES ADMINISTRATION SPECIALIST NOTES: Moderate plaque bilateral bifurcations. Slightly increased velocities left ICA IMPRESSION: 1. Atheromatous plaquing with posterior shadowing. 2. Moderate narrowing, between 50 and 69%, within the left internal carotid artery. 3. Some mild narrowing of less than 50% within the right internal carotid artery may be present. Criteria for Assigning % of Stenosis / Diameter reduction (Estimation based on the indirect measurements of the internal carotid artery velocities (ICA PSV). 1. Normal (no stenosis)=ICA PSV < 125 cm/s: ratio < 2.0: ICA EDV<40 cm/s. 2. Less than 50% stenosis=ICA PSV < 125 cm/s: ratio < 2.0: ICA EDV<40 cm/s. 3. 50 to 69% stenosis=ICA PSV of 125 to 230 cm/s: ration 2.0 ? 4.0: ICA EDV 40-100 cm/s. 4. Greater than 70% stenosis to near occlusion= ICA PSV > 230 cm/s: ratio > 4.0: ICA EDV > 100 cm/s. 5. Near occlusion= ICA PSV velocities may be low or undetectable: variable ratio and ICA EDV. 6. Total occlusion=unable to detect flow.
[2022-10-23] MEDS ORDERED: SODIUM CHLORIDE 0.9% 500 ML 500 ML IV ONE (11:39)
[2022-10-23] MEDS ORDERED: LIDOCAINE 1% INJ 10MG/ML (20 ML MDV) SQ ONE (11:50)
--- NOTE | 2022-10-23 12:04 | P.EPPROC ---
- EP Procedure Note Electrophysiology Procedure Note: Loop monitor implant Log Peeler: Log Peeler Annita of [employer] Denise Indication: Recurrent syncope and presyncope, Patient was brought to the EP lab in a fasting state. Written informed consent was obtained prior to the procedure. The left pectoral area was prepped and draped per protocol. Intravenous antibiotic was administered preoperatively. A subcutaneous Loop monitor was implanted successfully and the wound was closed per protocol. The device was programmed to detect significant herminia- arrhythmic and tachy-arrhythmic events, per protocol. Device and programming details: Syncopal protocol
[2022-10-23 12:25] LABS: Glucose,Whole Blood 269 mg/dL (70-110)
[2022-10-23 13:57] LABS: Chol/HDL Ratio 2.97 Ratio; LDL Cholesterol,Calculated 51.2 mg/dL (0.0-131.0)
--- NOTE | 2022-10-23 15:29 | P.PN ---
Subjective Progress Note Date: 10/23/22 The patient is an 81-year-old female who initially presented to the hospital with chest discomfort. This radiated down her left arm and into her left jaw. EKG did not show any ST or T wave bowel abnormalities, however she did have positive troponin levels. Coronary angiogram showed near normal coronary a rteries. Echocardiogram revealed moderate to severe aortic stenosis with mean gradient of 59 mmHg. The patient has also been reporting intermittent episodes of dizziness. She recently had one while driving. She states she feels that this is a shorter version of what she felt prior to having her atrial fibrillation ablation. At the time of my examination she was sitting up in the recliner chair. No current chest pain or chest pressure. No difficulty breathing. No dizziness when ambulating to the chair. GENERAL: Well-appearing, well-nourished and in no acute distress. NECK: Supple without JVD or thyromegaly. LUNGS: Breath sounds clear to auscultation bilaterally. Respiration equal and unlabored. No wheezes, rales or rhonchi. HEART: Regular rate and rhythm. Harsh systolic murmur. No rubs or gallops. S1 and S2 heard. EXTREMITIES: Normal range of motion, no edema. No clubbing or cyanosis. Peripheral pulses intact and strong. Right groin site has no bruising or hematoma. Right radial site is under bandage. TELEMETRY: Sinus rhythm without arrhythmias overnight IMPRESSION: Non-ST elevated myocardial infarction, normal coronary arteries, possible plaque rupture Severe aortic stenosis Dizziness and presyncope, proceed with Loop monitor implant History of atrial fibrillation status post ablation PLAN: Recommend Loop monitor implant for recurrent dizziness GISELE outpatient for possible TAVR workup Further recommendations to be based upon clinical course I am dictating on behalf of Dr Henry Serrato's history/physical and assessment/plan. Objective - Vital Signs Vital signs: Vital Signs Temp 97.6 F 10/23/22 06:50 Pulse 69 10/23/22 06:50 Resp 16 10/23/22 06:50 BP 143/69 10/23/22 06:50 Pulse Ox 99 10/23/22 06:50 FiO2 Intake & Output 10/22/22 10/23/22 10/23/22 18:59 06:59 18:59 Intake Total 120 56 Balance 120 56 Intake: IV 120 56 Other: Voiding Method Toilet # Voids 2 2 - Labs CBC & Chem 7: 10/22/22 07:27 10/22/22 07:27 Labs: Abnormal Lab Results - Last 24 Hours (Table) 10/22/22 10/22/22 10/23/22 Range/Units 17:15 20:49 00:48 APTT (22.0-30.0) sec POC Glucose (mg/dL) 143 H 284 H (70-110) mg/dL Triglycerides 152.00 H (0.00-149.00) mg/dL 10/23/22 10/23/22 10/23/22 Range/Units 06:13 06:37 12:21 APTT 19.5 L (22.0-30.0) sec POC Glucose (mg/dL) 161 H 269 H (70-110) mg/dL Triglycerides (0.00-149.00) mg/dL
[2022-10-23 15:37] VITALS: BP 124/60; RESP 18; TEMP 98
--- NOTE | 2022-10-23 16:03 | P.DS ---
Providers Date of admission: 10/21/22 16:38 Expected date of discharge: 10/23/22 Attending physician: Kenan Gould MD Consults: 10/21/22 13:27 Consult Physician Urgent Consulting Provider: [facility] Consult Reason/Comments: acute chest pain, possible acs Do you want consulting provider notified?: Yes 10/22/22 13:27 Consult Physician Routine Consulting Provider: Riki Rascon Consult Reason/Comments: right hand numbness, new onset Do you want consulting provider notified?: Yes Primary care physician: Braulio Caballero [facility] Course: Discharge Diagnosis: NSTEMI Chest pain radiating into left shoulder and left lower jaw Hyperkalemia Hypomagnesemia Paroxysmal atrial fibrillation status post cardiac ablation Hypertension Hyperlipidemia History of TIA History of breast cancer status post lumpectomy Uca-[id number] diabetes mellitus with hyperglycemia Hospital Course: Patient is a very pleasant 81-year-old female with a past medical history of [id number] diabetes mellitus, hypertension, hyperlipidemia, TIA, breast cancer status post lumpectomy in 2002, and paroxysmal atrial fibrillation status post ablation. Patient presented to the emergency department with the chief complaint of chest pain radiating into her left lower jaw and down her left arm. Patient reports she follows with bridge inspector, Dr. Tian but has never had any problems with her heart other than the atrial fibrillation and hasn't had any issues since her ablation nearly 10 years ago. Patient reports the pain in her chest subsided after a few moments but continued in her left lower jaw and down her left arm and shoulder. She denies having any associated symptoms including headache, lightheadedness, dizziness, palpitations, shortness of breath, nausea, vomiting, or experiencing any swelling/numbness/tingling/focal weakness in her extremities. Patient underwent full evaluation in the emergency department. Upon arrival vital signs stable with temp 98.1F, heart rate 72, respiratory rate 18, blood pressure 168/84, and SpO2 of 100% on room air. EKG was done upon arrival showing normal sinus rhythm at 72 bpm with no noted significant T-wave or ST abnormalities upon personal review and interpretation. Chest x-ray was completed, lungs appear clear and radiology report stating mild cardiomegaly without acute cardiopulmonary process. Labs completed and reviewed. CBC unremarkable. Coagulation profile normal findings. BMP revealing hyperkalemia with potassium of 5.6 and mild prerenal azotemia with elevated BUN of 18. Blood glucose 192. Magnesium low at 1.3. Troponin 0.030. Lipase slightly elevated at 380. Discussed clinical findings, laboratory analysis, and imaging results in detail with the ED physician. Patient being admitted under our services to general medical unit with telemetry with consultation to cardiology. Troponin significantly elevating throughout the night. Troponins elevating from 0.0302 0.410, 1.760, and 5.050. Patient was started on IV heparin. Repeat EKG completed again showing normal sinus rhythm with no T-wave or ST abnormalities upon personal review and interpretation. Cardiology evaluated and took patient for cardiac cath on 10/22/22. Upon patient's return from cardiac catheterization she reported isolated numbness to right hand. Order placed for a stat CT brain without contrast and consult neurology. CT brain was negative for acute intercranial process. Neurology evaluated. Cardiology took patient for loop recorder placement. Patient was started on Eliquis 2.5 mg twice daily, Plavix 75 mg daily, Norvasc 2.5 mg twice daily, and isosorbide mononitrate 30 mg daily. Patient has been free from any further episodes of chest pain left jaw since arrival to our facility. She had full resolution of isolated right hand numbness. Isolated episode of right hand numbness is believed to be secondary to cardiac catheterization and has fully resolved. Patient has been cleared by neurology and cardiology. She is medically at this time. We will follow up outpatient with PCP in 1-2 days and with cardiology office in one week for recommended GISELE. Physical exam: Vital signs reviewed and stable. General: Nontoxic, no distress and appears stated age. Derm: Skin warm and dry, normal coloration for ethnicity. Head: Atraumatic, normocephalic and symmetric. Eyes: EOMs intact, no lid lag, and anicteric sclera Mouth: no lip lesions, mucus membranes moist Cardiovascular: regular rate and rhythm with normal S1S2, systolic murmur, positive posterior tibial pulses bilaterally, and cap refill < 2 seconds. Lungs: Respirations even, regular, and unlabored on room air. Lungs CTA bilaterally, no rhonchi, no rales, no wheezing, and no accessory muscle usage. Abdominal: soft, nontender to palpation, no guarding, no appreciable organomegaly Ext: ROM intact. No gross muscle atrophy, no edema, no contractures Neuro: Speech clear, face symmetrical and CN II-XII grossly intact with no noted focal neuro deficits Psych: Alert and oriented to person, place, time, and situation. Appropriate and pleasant affect. A total of 31 minutes of time were spent preparing this complex discharge summary. Pt was discharged on 10/23/22 at 3:54 PM Patient was seen independently by Nurse Practitioner. This document was prepared using Get[employer] dictation software. Please allow for errors in geospatial information technologist while rare they do occur. Patient Condition at Discharge: Stable Plan - Discharge Summary Discharge Rx Participant: Yes New Discharge Prescriptions: New Apixaban [Eliquis] 2.5 mg PO BID 30 Days #60 tab Isosorbide Mononitrate ER [Imdur] 30 mg PO DAILY 30 Days #30 tab amLODIPine [Norvasc] 2.5 mg PO BID 30 Days #60 tab Clopidogrel [Plavix] 75 mg PO DAILY@2100 30 Days #30 tab Continue Calcium Carbonate [Tums] 1,500 mg PO DAILY Fexofenadine HCl [Astrid Allergy] 180 mg PO DAILY Cholecalciferol [Vitamin D3 (25 Mcg = 1000 Iu)] 50 mcg PO DAILY Ammonium Lactate Lotion [Lac-Hydrin 12% Lotion] 1 applic TOPICAL BID PRN PRN Reason: Itching metFORMIN HCL [Glucophage] 1,000 mg PO BID Letrozole [Femara] 2.5 mg PO DAILY L.acidoph,Paracasei, B.lactis [Probiotic] 1 cap PO DAILY Albuterol Sulfate [Albuterol Sulfate Hfa] 2 puff PO RT-Q6H PRN PRN Reason: Shortness Of Breath Glimepiride [Amaryl] 6 mg PO HS Glimepiride [Amaryl] 2 mg PO DAILY carvediloL [Coreg] 12.5 mg PO BID Atorvastatin Calcium [Lipitor] 40 mg PO HS Vit C/E/Zn/Coppr/Lutein/Zeaxan [Preservision Areds 2 Softgel] 1 cap PO BID Discontinued lisinopriL [Zestril] 20 mg PO BID Discharge Medication List Albuterol Sulfate [Albuterol Sulfate Hfa] 2 puff PO RT-Q6H PRN 10/21/22 [History] Ammonium Lactate Lotion [Lac-Hydrin 12% Lotion] 1 applic TOPICAL BID PRN 10/21/22 [History] Atorvastatin Calcium [Lipitor] 40 mg PO HS 05/11/23 [History] Calcium Carbonate [Tums] 1,500 mg PO DAILY 10/21/22 [History] Cholecalciferol [Vitamin D3 (25 Mcg = 1000 Iu)] 50 mcg PO DAILY 10/21/22 [History] Fexofenadine HCl [Astrid Allergy] 180 mg PO DAILY 10/21/22 [History] Glimepiride [Amaryl] 2 mg PO DAILY 10/21/22 [History] Glimepiride [Amaryl] 6 mg PO HS 10/21/22 [History] L.acidoph,Paracasei, B.lactis [Probiotic] 1 cap PO DAILY 10/21/22 [History] Letrozole [Femara] 2.5 mg PO DAILY 10/21/22 [History] Vit C/E/Zn/Coppr/Lutein/Zeaxan [Preservision Areds 2 Softgel] 1 cap PO BID 10/21/22 [History] carvediloL [Coreg] 12.5 mg PO BID 10/21/22 [History] metFORMIN HCL [Glucophage] 1,000 mg PO BID 10/21/22 [History] Apixaban [Eliquis] 2.5 mg PO BID 30 Days #60 tab 10/23/22 [Rx] Clopidogrel [Plavix] 75 mg PO DAILY@2100 30 Days #30 tab 10/23/22 [Rx] Isosorbide Mononitrate ER [Imdur] 30 mg PO DAILY 30 Days #30 tab 10/23/22 [Rx] amLODIPine [Norvasc] 2.5 mg PO BID 30 Days #60 tab 10/23/22 [Rx] Follow up Appointment(s)/Referral(s): Henry Serrato MD [STAFF PHYSICIAN] - 1 Week Braulio Caballero MD [Primary Care Provider] - 1-2 days Patient Instructions/Handouts: Heart Catheterization (DC), Cardiac Loop Recorder Insertion (DC) Activity/Diet/Wound Care/Special Instructions: Activity: As tolerated. Take breaks as needed. Diet: Heart healthy and carb consistent diet. Avoid salts, or foods with hidden salts such as canned or boxed foods and frozen dinners. Extra salt makes your heart work harder and traps the fluid in your body for longer. Special Instructions: Take all of your medications as directed and remember to keep all of your doctor's appointments and follow-up as needed. You are being discharged home with a loop recorder in place and you need to follow up outpatient and bridge inspector office for scheduling of your GISELE. Please call office first thing Tuesday to schedule this appointment. Thank you for allowing us to participate in your care, it was truly a pleasure having you for our patient!!! Discharge Disposition: HOME SELF-CARE
[2022-10-23] MEDS ORDERED: APIXABAN 2.5 MG TABLET PO SCH (21:00)
[2022-10-24] MEDS ORDERED: CLINDAMYCIN 900 MG in DEXTROSE 5% IN WATER 50 ML IVPB PRN ×2 (07:00)
== END 2022-10-23 16:34 | disposition home or self-care (01) | DRG 262 ==
LOC: EC 10:16 → 6NMEDSUR 13:28 → OBSVTOIN 16:38
PROVIDERS: ADMIT Student in an Organized Health Care Education/Training Program; ATTEND Student in an Organized Health Care Education/Training Program
PROC: B41F1ZZ Fluoroscopy of Right Lower Extremity Arteries using Low Osmolar Contrast (ICD-10-PCS; 2022-10-22)
PROC: B2111ZZ Fluoroscopy of Multiple Coronary Arteries using Low Osmolar Contrast (ICD-10-PCS; 2022-10-22)
PROC: 4A023N7 Measurement of Cardiac Sampling and Pressure, Left Heart, Percutaneous Approach (ICD-10-PCS; 2022-10-22)
PROC: 0JH602Z Insertion of Monitoring Device into Chest Subcutaneous Tissue and Fascia, Open Approach (ICD-10-PCS; principal; 2022-10-23 10:25)
DX: I21.4 Non-ST elevation (NSTEMI) myocardial infarction (principal); E11.65 Type 2 diabetes mellitus with hyperglycemia; Z79.84 Long term (current) use of oral hypoglycemic drugs; E78.5 Hyperlipidemia, unspecified; E83.42 Hypomagnesemia; E87.5 Hyperkalemia; F41.9 Anxiety disorder, unspecified; I10 Essential (primary) hypertension; R55 Syncope and collapse; M19.90 Unspecified osteoarthritis, unspecified site; Z86.73 Personal history of transient ischemic attack (TIA), and cerebral infarction without residual deficits; R79.89 Other specified abnormal findings of blood chemistry; I08.3 Combined rheumatic disorders of mitral, aortic and tricuspid valves; I48.0 Paroxysmal atrial fibrillation; Z79.01 Long term (current) use of anticoagulants; Z79.811 Long term (current) use of aromatase inhibitors; Z79.899 Other long term (current) drug therapy; Z85.3 Personal history of malignant neoplasm of breast; Z88.1 Allergy status to other antibiotic agents; Z88.5 Allergy status to narcotic agent; Z88.0 Allergy status to penicillin; Z88.8 Allergy status to other drugs, medicaments and biological substances; Z91.018 Allergy to other foods
CPT/HCPCS: 33285; 36415; 70450; 71046; 80048; 80053; 80061; 83036; 83690; 83735; 83880; 84484; 85025; 85379; 85610; 85730; 93005; 93306; 93458; 93880; 99285

== ENCOUNTER → 2023-04-28 | Outpatient (CLI) | payer MEDICARE ==
[2023-04-28 09:44] LABS: Basophils % (A) 1 %; Eosinophils # (A) 0.2 k/uL (0-0.7); Eosinophils % (A) 3 %; HCT 39.2 % (34.0-46.0); HGB 12.9 gm/dL (11.4-16.0); Lymphocytes # (A) 1.4 k/uL (1.0-4.8); Lymphocytes % (A) 19 %; MCV 90.8 fL (80.0-100.0); Mean Platelet Volume 7.3; Monocytes # (A) 0.5 k/uL (0-1.0); Monocytes % (A) 7 %; Neutrophils # (A) 5.1 k/uL (1.3-7.7); Neutrophils % (A) 70 %; Platelet Count 217 k/uL (150-450); RBC 4.32 m/uL (3.80-5.40); RDW 13.7 % (11.5-15.5); WBC 7.4 k/uL (3.8-10.6)
[2023-04-28 09:55] LABS: Appearance,Urine Cloudy (Clear); Bacteria,Urine Rare /hpf; Bilirubin,Urine Negative (Negative); Blood,Urine Negative (Negative); Color,Urine Light Yellow; Glucose,Urine (UA) Negative (Negative); Hyaline Casts,Urine 1 /lpf (0-2); Ketones,Urine Negative (Negative); Leukocyte Esterase,Urine Large (Negative); Mucus,Urine Rare /hpf; Nitrite,Urine Negative (Negative); Protein,Urine Negative (Negative); RBC,Urine 2 /hpf (0-5); Specific Gravity,Urine 1.019 (1.001-1.035); Squamous Epithelial Cell,Urine 4 /hpf (0-4); Urobilinogen,Urine <2.0 mg/dL (<2.0); WBC,Urine 27 /hpf (0-5)
[2023-04-28 09:56] LABS: INR 0.9 (<1.2); Partial Thromboplastin Time 24.4 sec (22.0-30.0); Prothrombin Time 10.1 sec (10.0-12.5)
[2023-04-28 09:59] LABS: ALT 17 U/L (4-34); AST 19 U/L (14-36); African American GFR (CKD) >90 (>60 ml/min/1.73 sqM); Albumin 4.2 g/dL (3.5-5.0); Albumin/Globulin Ratio 1.6; Alkaline Phosphatase 92 U/L (38-126); Anion Gap 11 mmol/L; Blood Urea Nitrogen 19 mg/dL (7-17); Calcium 9.3 mg/dL (8.4-10.2); Carbon Dioxide 24 mmol/L (22-30); Chloride 104 mmol/L (98-107); Globulin 2.6 g/dL; Glucose 208 mg/dL (74-99); Magnesium 1.1 mg/dL (1.6-2.3); Non-African American GFR(CKD) 83 (>60 ml/min/1.73 sqM); Potassium 4.4 mmol/L (3.5-5.1); Sodium 139 mmol/L (137-145); Total Bilirubin 0.8 mg/dL (0.2-1.3); Total Protein 6.8 g/dL (6.3-8.2)
[2023-04-28 10:07] LABS: NT-Pro-B-Type Natriuretic Pept 572 pg/mL
--- NOTE | 2023-04-28 13:14 | CT ---
EXAMINATION TYPE: CT TAVR Planning DATE OF EXAM: 04/28/2023 HISTORY: CT DLP: mGycm Automated Exposure Control for Dose Reduction was Utilized. CONTRAST: CT scan of the chest, abdomen and pelvis is performed , patient injected with mL of . COMPARISON: None TECHNIQUE: Helical imaging obtained through the chest, abdomen and pelvis during arterial phase benedict kathrin administration of radiographic contrast intravenously. FINDINGS: See report from [facility] regarding preprocedural planning CHEST: Lower Neck and Thyroid: No significant findings Lungs: No significant findings Central Airway: No significant findings Pleura: No significant findings Pulmonary Arteries: No significant findings Heart and Pericardium: No significant findings Lymph Nodes: No significant findings Mediastinum & Esophagus: No significant findings ABDOMEN/PELVIS: Please note arterial phase of the imaging limits detailed evaluation of the solid abdominal organs. Liver: There is evidence of hepatic steatosis. The gallbladder surgically absent. Spleen: Splenic granulomas noted. Kidneys: No significant findings Adrenal Glands: No significant findings Pancreas: No significant findings Gallbladder: No significant findings Bowel and Mesentery: No significant findings Lymph Nodes: No significant findings Urinary Bladder: No significant findings Pelvic Organs: Hysterectomy changes seen. Other: No significant findings Other Lines/Tubes/Devices/Hardware: None IMPRESSION: TAVR planning
[2023-04-28 19:09] LABS: Chol/HDL Ratio 2.55 Ratio; LDL Cholesterol,Calculated 57.3 mg/dL (0.0-131.0)
[2023-04-28 19:16] LABS: Hepatitis A Antibody IgM Nonreactive; Hepatitis B Core IgM Nonreactive; Hepatitis B Surface Antigen Nonreactive; Hepatitis C IgG Antibody Nonreactive
== END | disposition home or self-care (01) ==
LOC: LABWHC1 09:05
PROVIDERS: ATTEND Thoracic Surgery (Cardiothoracic Vascular Surgery)
DX: Z01.818 Encounter for other preprocedural examination (principal); I35.1 Nonrheumatic aortic (valve) insufficiency; I35.0 Nonrheumatic aortic (valve) stenosis; E87.8 Other disorders of electrolyte and fluid balance, not elsewhere classified; N28.9 Disorder of kidney and ureter, unspecified; E11.9 Type 2 diabetes mellitus without complications; E78.5 Hyperlipidemia, unspecified; E07.9 Disorder of thyroid, unspecified; Z79.01 Long term (current) use of anticoagulants; Z79.899 Other long term (current) drug therapy; R35.0 Frequency of micturition; R58 Hemorrhage, not elsewhere classified
CPT/HCPCS: 94150; 83880; 80061; 80053; 80074; 84443; 83735; 85025; 85610; 85730; 81001; 87086; 83036; 71275; 36415 ×2; 74174; Q9967

== ENCOUNTER → 2023-06-02 | Outpatient (CLI) | payer MEDICARE ==
[2023-06-02 13:43] LABS: Partial Thromboplastin Time 23.8 sec (22.0-30.0)
[2023-06-02 14:28] LABS: INR 0.9 (<1.2); Prothrombin Time 10.3 sec (10.0-12.5)
[2023-06-02 18:17] LABS: HCT 38.7 % (37.2-46.3); HGB 12.4 g/dL (12.0-15.0); MCH 29.2 pg (27.0-32.0); MCV 91.1 FL (80.0-97.0); Mean Platelet Volume 10.1 FL (9.5-12.2); NRBC Per 100 WBC 0 X 10*3/uL (0.00-0.01); Platelet Count 233 X 10*3/uL (140-440); RBC 4.25 X 10*6/uL (4.10-5.20); RDW 13.4 % (11.5-14.5); WBC 8.37 X 10*3/uL (4.50-10.00)
[2023-06-02 18:26] LABS: BUN/Creat Ratio 20.22 Ratio (12.00-20.00); Blood Urea Nitrogen 18.2 mg/dL (9.0-27.0); Calcium 9.6 mg/dL (8.7-10.3); Carbon Dioxide 21.8 mmol/L (21.6-31.8); Chloride 102 mmol/L (96-109); Glucose 311 mg/dL (70-110); Potassium 4.5 mmol/L (3.5-5.5); Sodium 139 mmol/L (135-145)
== END | disposition home or self-care (01) ==
LOC: LABWHC1 12:58
PROVIDERS: ATTEND Thoracic Surgery (Cardiothoracic Vascular Surgery)
DX: Z01.812 Encounter for preprocedural laboratory examination (principal); I35.1 Nonrheumatic aortic (valve) insufficiency; R58 Hemorrhage, not elsewhere classified; Z79.899 Other long term (current) drug therapy; Z79.01 Long term (current) use of anticoagulants
CPT/HCPCS: 80048; 85027; 85610; 85730; 86850; 86900; 86901

== ENCOUNTER 2023-06-08 06:08 | Inpatient (IN) | payer MEDICARE ==
[2023-05-30 16:26] VITALS: BMI 32.8
[~2023-06-08 06:08] MED LIST: ASPIRIN 325 MG TAB PO ONE; ATORVASTATIN 10 MG TAB PO ONE; CLEVIDIPINE BUTYRATE 25 MG in EMPTY BAG 1 BAG IV PRN; CLOPIDOGREL 75 MG TAB PO ONE; ELECTROLYTE-A SOLUTION 1,000 ML with POTASSIUM CHLORIDE 100 MEQ, MAGNESIUM SULFATE 16 M... IV PRN; INSULIN REGULAR 100 UNIT in SODIUM CHLORIDE 0.9% 100 ML IV PRN; LACTATED RINGERS 1,000 ML IV SCH; METOPROLOL TARTRATE 25 MG TAB PO ONE; NITROGLYCERIN-D5W PMX 25 MG/250 ML BTL IV PRN; PROTAMINE SULFATE 250 MG in EMPTY BAG 1 BAG IV PRN; SODIUM CHLORIDE 0.9% 500 ML 500 ML INTRAARTER PRN; TRANEXAMIC ACID 2,000 MG in SODIUM CHLORIDE 0.9% 80 ML IV PRN
[2023-06-08] MEDS ORDERED: SODIUM CHLORIDE 0.9% 1,000 ML IV ONE (06:40)
[2023-06-08 06:53] LABS: Glucose,Whole Blood 214 mg/dL (70-110)
[2023-06-08] MEDS ORDERED: PROTAMINE SULFATE 10 MG/ML 5 ML VIAL ONE (07:41)
[2023-06-08] MEDS ORDERED: MIDAZOLAM 2 MG/2 ML VIAL ONE (07:41)
[2023-06-08] MEDS ORDERED: LIDOCAINE 1% INJ 10MG/ML (20 ML MDV) ONE (07:41)
[2023-06-08] MEDS ORDERED: ATROPINE SULFATE 0.1 MG/ML 10ML SYRINGE ONE (07:41)
[2023-06-08] MEDS ORDERED: ePHEDrine 50 MG/ML 1 ML VIAL ONE (07:41)
[2023-06-08] MEDS ORDERED: PHENYLEPHRINE-0.9% NACL SYG 1,000 MCG/10 ML SYRINGE ONE (07:41)
[2023-06-08] MEDS ORDERED: HEPARIN SODIUM,PORCINE 10,000 UNIT/ML 1 ML VIAL ONE (07:41)
[2023-06-08] MEDS ORDERED: SUCCINYLCHOLINE CHLORIDE 200 MG/10 ML VIAL IV ONE (07:41)
[2023-06-08] MEDS ORDERED: PROPOFOL 10 MG/ML 20 ML VIAL IV ONE (07:41)
[2023-06-08] MEDS ORDERED: WATER FOR INJECTION, STERILE 10 ML VIAL IV ONE (07:41)
[2023-06-08] MEDS ORDERED: PHENYLEPHRINE 10 MG/ML VIAL ONE (07:41)
[2023-06-08] MEDS ORDERED: NEOSTIGMINE 1 MG/ML 10 ML VIAL ONE (07:41)
[2023-06-08] MEDS ORDERED: DOPamine DRIP 800 MG/250 ML BAG IV ONE (07:41)
[2023-06-08] MEDS ORDERED: LIDOCAINE 2% SYG (PF) 100 MG/5 ML ONE (07:41)
[2023-06-08] MEDS ORDERED: GLYCOPYRROLATE 0.2 MG/ML 2 ML VIAL ONE (07:41)
[2023-06-08] MEDS ORDERED: AMIODARONE 50 MG/ML 3 ML VIAL IV ONE (07:41)
[2023-06-08] MEDS ORDERED: ROCURONIUM 10 MG/ML (5 ML VIAL) IV ONE (07:41)
[2023-06-08] MEDS ORDERED: EPINEPHrine 10 ML SYRINGE (0.1 MG/ML) ONE (07:41)
--- NOTE | 2023-06-08 09:22 | P.ANPRN ---
Procedure Note - Anesthesia - Invasive Line Left Arterial Line Time Out Performed: Yes ([id number]) Date of Procedure: 06/08/23 Time of Procedure: 06:46 Location of Patient: CVL Preparation: Sterile Prep, Sterile Dressing Arterial Line Location: Radial (left) Ultrasound Used: No Purpose - Visualization and Identification of Vasculature: No Needle Guage: 20g Image Stored and Saved: No Narrative: Central line placement per sterile protocol utilized. lumen bled and flushed. Pulsitile flow.
[2023-06-08] MEDS ORDERED: IOPAMIDOL-370 100ML BTL INJ ONE ×2 (09:23)
--- NOTE | 2023-06-08 09:24 | P.ANPRN ---
Procedure Note - Anesthesia - GISELE Intraop Pre Bypass GISELE Intraop - Anesthesia Indication: TAVR Date of Procedure: 06/08/23 Pre-operative Diagnosis: Aortic Stenosis Post-operative Diagnosis: Same s/p tavr Surgeon: Vinnie Walker Left Ventricle: wnl Ejection Fraction: Normal Regional Wall Motion Abnormalities: None Left Ventricle Hypertrophy: No R. Ventricle Function: Normal Aortic Valve: Severe aortic stenosis. 0.3cm2. Peak gradient 80/Mean 51. LVOT 1.7cm Anatomy: Trileaflet Aortic Stenosis: Severe Aortic Regurgitation: Mild Mitral Stenosis: None Mitral Regurgitation: Mild Tricuspid Stenosis: None Tricuspid Regurgitation: None Pulmonic Stenosis: None Pulmonic Regurgitation: None R. Atrial Dilation: No R. Atrial PFO: No L. Atrial Dilation: No Aortic Dissection: No Aortic Calcification: None Plural Effusion: None
--- NOTE | 2023-06-08 09:25 | P.ANPRN ---
Procedure Note - Anesthesia - GISELE Intraop Post Bypass GISELE Intraop Post Bypass Procedure Performed: TAVR Left Ventricle: wnl Ejection Fraction: Normal Regional Wall Motion Abnormalities: None R. Ventricle Function: Normal Aortic Valve: Prosthetic Aortic Valve in place without perivalvular leak. Residual mean gradient 3. Mitral Valve: Unchanged Tricuspid: Unchanged Pulmonic: Unchanged Aortic Dissection: No
--- NOTE | 2023-06-08 09:38 | P.PCN ---
Date of Procedure: 06/08/23 Operative Findings: TRANSCATHETER AORITC VALVE REPLACEMENT OPERATIVE REPORT PROCEDURE PERFORMED: 1. Percutaneous Aortic Valve Implantation using a 26 mm Evolut FX 2. Transesophageal echocardiography (performed by anesthesia) 3. Ultrasound guided access and repair of bilateral femoral artery access site by Perclose closure device and Angio-Seal device 4. Placement of temporary pacemaker wire. 5. Balloon angioplasty of the right common femoral artery INDICATIONS: 1. year-old with a history of severe symptomatic aortic valve stenosis. The patient was experiencing shortness of breath consistent with NYHA class II PERFORMING PHYSICIANS: 1. Cameron Butterfield MD Interventional Cardiology. 2. Raji Rivera DO Interventional Cardiology 3. Vinnie Walker MD, Cardiothoracic Surgeon. SEDATION: General anesthesia provided by anesthesia, see separate note APPROACH: Bilateral femoral artery via percutaneous approach PROCEDURE DESCRIPTION: The patient was discussed at valve clinic with multidisciplinary approach with cardiothoracic surgeon as well as fabricating machine operator and thought better treated with TAVR. Risks, benefits, and alternatives of the procedure had been explained to the patient who understood the risks and agreed to proceed. After consents were obtained, patient was brought to the transcatheter aortic valve implantation room in the cardiac yard laborer and general anesthesia was provided by the anesthesiologist (see separate report). Subsequently the left common femoral vein was cannulated using micropuncture technique under ultrasound guidance; puncture wire passed easily then I placed 23 cm sheath 6-Turkish and the left common femoral vein. Subsequently under fluoroscopy guidance I did advance the balloon tip temporary pacer to the right ventricle. Upon advancing the base of the RV and because of irritation of the RV patient went into ventricular fibrillation required CPR for few minutes and also amiodarone. Subsequently she was brought into normal sinus mechanism. After that the left common femoral artery was cannulated using a crush technique under ultrasound guidance and a puncture wire passed easily then I placed a 6 Turkish 55 cm the left common femoral artery where the sheath was advanced under fluoroscopy guidance to the proximal descending aorta. After that I did advanced a pigtail catheter to the aortic root and subsequently to the non-coronary cusp. The pigtail catheter was connected into the tubing injection. After that the right common femoral artery was cannulated using a crush technique under ultrasound guidance and a puncture wire passed easily then I placed a 6-Turkish sheath. After that I did deploy 2 Perclose at 11:00 and 2:00 subsequently. After that I placed an 8-Turkish sheath at the right common femoral artery. Subsequently I did exchange my regular 035 wire into a stiff wire using the pigtail catheter and then I placed or exchanged the 8-Turkish sheath into 14-Turkish sheath. That was performed under fluoroscopy guidance. Next a 6F- AL1 catheter was advanced over a wire to the aortic root. A straight wire was advanced through the catheter and used to cross the severely stenotic valve. The AL1 was then exchanged for a 6Fr pigtail catheter and pressure measurements were obtained. The 0.035 [place] wire was then positioned in the apex. Predilatation was performed using 18 mm balloon. Next a 26 mm Evolut was advanced. The valve was then positioned across the aortic valve and confirmed with aortic root angiography. [The valve was initially partially deployed however needed repositioning and therefore was recaptured.] The valve was then deployed in proper position using slow deployment and with rapid pacing in conjuncture with aortic root angiography and GISELE. The delivery system was withdrawn back into the arch and an aortic root injection in conjunction with GISELE demonstrated a satisfactory result. There was trivial para valvular leak. There was no evidence of any other significant abnormalities. The preclose Perclose was then deployed in the right femoral artery and no hemostasis was achieved. At that point I had to go up and over from the left groin and advance a 6 mm x 40 mm balloon and thumb balloon at the right common femoral artery to achieve good hemostasis. Final angiogram was performed with injection through the balloon and showed good hemostasis at the right common femoral artery and subsequently the left common femoral artery was closed using Angio-Seal with a good hemostasis at the end. The temporary pacemaker was withdrawn out. The procedure was completed there was no complication COMPLICATIONS: None RECOMMENDATIONS: The patient will be monitored in the ICU for hemodynamic and electrical stability.
--- NOTE | 2023-06-08 09:54 | P.OP ---
Date of Procedure: 06/08/23 Preoperative Diagnosis: Symptomatic tricuspid aortic valve stenosis Postoperative Diagnosis: Same Procedure(s) Performed: Percutaneous right transfemoral transcatheter aortic valve implantation with 26 mm Medtronic Evolute FX valve Implants: 26 mm Medtronic Evolute FX valve Anesthesia: ALEXUSA Surgeon: Vinnie Walker Apparel Manufacture Instructor #1: Cameron Butterfield (First milling machine operator gear) Apparel Manufacture Instructor #2: Raji Rivera (Second milling machine operator gear) Pathology: none sent Condition: stable Disposition: PACU Indications for Procedure: 82-year-old morbidly obese female with symptomatic calcific tricuspid aortic stenosis. Patient was evaluated in the valve clinic and felt to be most appropriate for transcatheter aortic valve implantation. Elective surgery was scheduled. Operative Findings: There was a significant gradient across the aortic valve on initial measurement. Valve was heavily calcified and difficult to cross. Valve was easily and successfully predilated with an 18 mm balloon. Implantation of the transcatheter valve proceeded without event. Implant levels were 4 on the right and 3 on the left. There was excellent expansion of the valve within the annulus. GISELE demonstrated no evidence of aortic insufficiency with mean gradient of 3 mmHg across the valve. Description of Procedure: Patient was brought to the cardiac catheterization laboratory and appropriately positioned on the table. General anesthesia was induced and the patient was intubated. Anterior torso and bilateral groins were sterilely prepped and draped. Left femoral arterial and venous axis was obtained under ultrasound guidance by Dr. Butterfield. Long 6-South Korean sheath was placed in the left femoral artery and advanced into the descending thoracic aorta. Through this a pigtail was advanced into the noncoronary sinus of Valsalva. The left femoral sheath with a 8-South Korean. A transvenous pacer was advanced through this into the right ventricle. On positioning the pacer in the apex of the right ventricle, the patient developed ventricular tachycardia. She was electrically defibrillated and after successful the fibrillation was given amiodarone and lidocaine. Right femoral arterial access was obtained under ultrasound guidance and a 7-South Korean sheath was placed. 2 Perclose devices were placed. We upsized to a 9-[place] sheath. Stiff wire was placed into the descending thoracic aorta from the right femoral arterial side and the 8-South Korean sheath was upsized to a 14-South Korean sheath. The patient was systemically heparinized and a CTs were maintained greater than 250 for the remainder of the procedure. Aortic valve was crossed from the right femoral side pigtail catheter positioned in the apex of the left ventricle. Transvalvular gradients were measured. A 26 mm Medtronic Evolute FX valve and the loaded on the back table was brought up onto the field. It was checked under fluoroscopy. Stiff wire was now placed in the apex of the ventricle and aortic valve was predilated with an 18 mm true balloon under rapid ventricular pacing. This proceeded uneventfully. We now exchanged the 14-[place] sheath for the core valve delivery system maintaining the wire in the apex of the ventricle. Core valve was advanced across the [place] aortic annulus under fluoroscopic guidance and appropriately positioned. The valve was deployed under rapid ventricular pacing with deployment levels of 4 on the right and 3 on the left. This proceeded uneventfully. The valve disappointment system was pulled back and exchanged for a 14-[place] sheath. GISELE evaluation of the valve was performed with findings as noted above. Happy with our final outcome and heparin was reversed with protamine. Femoral hemostasis was obtained by Dr. Butterfield. Patient was extubated and transferred to recovery in stable condition.
[2023-06-08] MEDS ORDERED: DOPamine DRIP 800 MG in DEXTROSE/WATER 1 250ML.BAG IV SCH (10:00)
[2023-06-08] MEDS: PHENYLEPHRINE 40 MG in SODIUM CHLORIDE 0.9% 250 ML IV SCH ×2 (10:31→13:00)
[2023-06-08] MEDS ORDERED: ALBUMIN HUMAN 5% (12.5gm) 250 ML BOTTLE IVPB ONE (10:34)
[2023-06-08] MEDS: VASOPRESSIN 20 UNIT/ML 1 ML VIAL IV ONE ×2 (11:05→11:29)
[2023-06-08] MEDS ORDERED: ACETAMINOPHEN TAB 325 MG TAB PO PRN (11:40)
[2023-06-08] MEDS ORDERED: Magnesium Replacement Protocol 1 EACH MISC MISCELLANE PRN (11:40)
[2023-06-08] MEDS ORDERED: IPRATROPIUM-ALBUTEROL 3 ML NEB INHALATION PRN (11:40)
[2023-06-08] MEDS ORDERED: KETOTIFEN 0.025% OPHTH DROPS 5 ML BTL BOTH EYES PRN (11:40)
[2023-06-08] MEDS ORDERED: DEXTROSE 50% SYRINGE 50 ML IVP PRN ×2 (11:40)
[2023-06-08] MEDS ORDERED: Potassium Replacement Protocol 1 EACH MISC MISCELLANE PRN (11:40)
[2023-06-08] MEDS ORDERED: ONDANSETRON 4 MG/2 ML VIAL IVP PRN (11:40)
[2023-06-08] MEDS ORDERED: CALCIUM GLUCONATE IN NACL 2 GM in SALINE 1 100ML.BAG IVPB PRN (11:40)
[2023-06-08 11:53] LABS: African American GFR (CKD) >90 (>60 ml/min/1.73 sqM); Anion Gap 15 mmol/L; Blood Urea Nitrogen 18 mg/dL (7-17); Calcium 8.7 mg/dL (8.4-10.2); Carbon Dioxide 18 mmol/L (22-30); Chloride 104 mmol/L (98-107); Glucose 298 mg/dL (74-99); Non-African American GFR(CKD) 81 (>60 ml/min/1.73 sqM); Potassium 4.3 mmol/L (3.5-5.1); Sodium 137 mmol/L (137-145)
[2023-06-08] MEDS: SODIUM CHLORIDE 0.9% 1,000 ML IV SCH ×2 (12:00→21:35)
[2023-06-08 12:09] LABS: Glucose,Whole Blood 278 mg/dL (70-110)
[2023-06-08] MEDS ORDERED: INSULIN ASPART (NovoLOG) 100 UNIT/ML VIAL SQ ONE (12:16)
--- NOTE | 2023-06-08 12:20 | XR ---
EXAMINATION TYPE: XR chest 1V portable DATE OF EXAM: 06/08/2023 12:15 PM CLINICAL INDICATION:Female, 82 years old with history of Post Operative Cardiac Surgery; COMPARISON: Chest radiographs from 10/21/2022. TECHNIQUE: XR chest 1V portable Frontal view of the chest. FINDINGS: Lungs/Pleura: There is no evidence of pleural effusion, focal consolidation, or pneumothorax. Pulmonary vascularity: Unremarkable. Heart/mediastinum: Cardiomediastinal silhouette is enlarged and stable. Post aortic valve repair hilary nges. A loop recorder projects over the left thorax over the heart. Musculoskeletal: No acute osseous pathology. IMPRESSION: Low lung volumes with a generalized hazy appearance which could represent atelectasis. Post aortic va lve repair changes.
[2023-06-08 12:21] LABS: Basophils # (A) 0.1 k/uL (0-0.2); Basophils % (A) 0 %; Eosinophils # (A) 0.1 k/uL (0-0.7); Eosinophils % (A) 0 %; HCT 34.8 % (34.0-46.0); HGB 11.8 gm/dL (11.4-16.0); Lymphocytes % (A) 7 %; MCH 30.7 pg (25.0-35.0); MCHC 33.9 g/dL (31.0-37.0); MCV 90.6 fL (80.0-100.0); Mean Platelet Volume 7.5; Monocytes % (A) 7 %; Neutrophils # (A) 11.8 k/uL (1.3-7.7); Neutrophils % (A) 84 %; Platelet Count 246 k/uL (150-450); RBC 3.84 m/uL (3.80-5.40); RDW 13.6 % (11.5-15.5)
[2023-06-08 12:58] LABS: Glucose,Whole Blood 282 mg/dL (70-110)
[2023-06-08] MEDS: CHOLECALCIFEROL 25 MCG (1000 IU) TABLET PO SCH (14:43)
[2023-06-08] MEDS: INSULIN ASPART (NovoLOG) 100 UNIT/ML VIAL SQ SCH ×3 (14:43→20:52)
[2023-06-08 16:53] LABS: Glucose,Whole Blood 251 mg/dL (70-110)
[2023-06-08 20:25] LABS: Glucose,Whole Blood 181 mg/dL (70-110)
[2023-06-08] MEDS ORDERED: LORATADINE 10 MG TAB PO SCH (21:00)
[2023-06-08] MEDS ORDERED: GLIMEPIRIDE 2 MG TAB PO SCH (21:00)
[2023-06-08] MEDS ORDERED: SENNOSIDES-DOCUSATE SODIUM 1 EACH TAB PO SCH (21:00)
[2023-06-08] MEDS ORDERED: ATORVASTATIN 40 MG TAB PO SCH (21:00)
[2023-06-09] MEDS: HEPARIN SODIUM,PORCINE 5,000 UNIT/ML 1 ML VIAL SQ SCH ×2 (00:14→08:24)
[2023-06-09 06:50] LABS: Basophils % (A) 0 %; Eosinophils # (A) 0.1 k/uL (0-0.7); Eosinophils % (A) 1 %; HCT 29.8 % (34.0-46.0); HGB 10.1 gm/dL (11.4-16.0); Lymphocytes # (A) 1.1 k/uL (1.0-4.8); Lymphocytes % (A) 14 %; MCH 30.6 pg (25.0-35.0); MCHC 33.9 g/dL (31.0-37.0); MCV 90.4 fL (80.0-100.0); Mean Platelet Volume 8.1; Monocytes # (A) 0.6 k/uL (0-1.0); Monocytes % (A) 8 %; Neutrophils # (A) 5.9 k/uL (1.3-7.7); Neutrophils % (A) 74 %; Platelet Count 160 k/uL (150-450); RDW 14.1 % (11.5-15.5); WBC 7.9 k/uL (3.8-10.6)
[2023-06-09 06:58] LABS: Glucose,Whole Blood 94 mg/dL (70-110)
[2023-06-09] MEDS: INSULIN ASPART (NovoLOG) 100 UNIT/ML VIAL SQ SCH ×2 (07:12→11:41)
[2023-06-09 07:25] LABS: Ionized Calcium 4.8 mg/dL (4.5-5.3)
[2023-06-09] MEDS ORDERED: PANTOPRAZOLE 40 MG TABLET PO SCH (07:30)
[2023-06-09] MEDS ORDERED: carvediloL 12.5 MG TAB PO SCH (07:30)
[2023-06-09 07:52] LABS: ALT 16 U/L (4-34); AST 26 U/L (14-36); African American GFR (CKD) >90 (>60 ml/min/1.73 sqM); Albumin 3.2 g/dL (3.5-5.0); Alkaline Phosphatase 60 U/L (38-126); Anion Gap 10 mmol/L; Blood Urea Nitrogen 12 mg/dL (7-17); Calcium 8.4 mg/dL (8.4-10.2); Carbon Dioxide 22 mmol/L (22-30); Chloride 106 mmol/L (98-107); Glucose 54 mg/dL (74-99); Magnesium 1.4 mg/dL (1.6-2.3); Non-African American GFR(CKD) 84 (>60 ml/min/1.73 sqM); Potassium 3.8 mmol/L (3.5-5.1); Sodium 138 mmol/L (137-145); Total Bilirubin 0.6 mg/dL (0.2-1.3); Total Protein 5.5 g/dL (6.3-8.2)
[2023-06-09] MEDS: CHOLECALCIFEROL 25 MCG (1000 IU) TABLET PO SCH (08:25)
[2023-06-09] MEDS: MAGNESIUM SULFATE-D5W PMX 1 GM in DEXTROSE/WATER 1 100ML.BAG IVPB SCH ×2 (08:33→11:02)
[2023-06-09] MEDS ORDERED: CLOPIDOGREL 75 MG TAB PO SCH (09:00)
[2023-06-09] MEDS ORDERED: bisacodyL 10 MG SUPP RECTAL PRN (09:00)
[2023-06-09] MEDS ORDERED: ISOSORBIDE MONONITRATE ER 30 MG TAB.ER.24H PO SCH (09:00)
[2023-06-09] MEDS ORDERED: CALCIUM CARBONATE 500 MG CHEWABLE PO SCH (09:00)
[2023-06-09] MEDS ORDERED: GLIMEPIRIDE 2 MG TAB PO SCH (09:00)
[2023-06-09] MEDS ORDERED: MAGNESIUM OXIDE 400 MG TAB PO SCH (09:00)
[2023-06-09] MEDS ORDERED: POTASSIUM CHLORIDE ER 20 MEQ TAB.ER PO SCH (09:00)
[2023-06-09] MEDS ORDERED: amLODIPine 2.5 MG TAB PO SCH (09:00)
[2023-06-09] MEDS ORDERED: VIT A,C & E-LUTEIN-MINERALS 1 EACH TAB PO SCH (09:00)
[2023-06-09] MEDS ORDERED: MAGNESIUM HYDROXIDE 2,400 MG/30 ML CUP PO PRN (09:00)
--- NOTE | 2023-06-09 10:32 | CA ---
Transthoracic Echo Report Name: Melony Arango Age: 82 Gender: F : 1940 Exam Date: 06/09/2023 07:45 Exam Location: [facility] Ht (in): 64 Wt (lb): 194 Ordering Physician: Hanna Bravo Attending/Referring Phys: [id number], Lawrence Photography Assistant Keila Easley [facility] Procedure CPT: Indications: post TAVR Cardiac Hx: Technical Quality: Technically difficult study Contrast 1: Total Dose (mL): Contrast 2: Total Dose (mL): MEASUREMENTS (Male / Female) Normal Values 2D ECHO LV Diastolic Diameter PLAX 3.8 cm 4.2 - 5.9 / 3.9 - 5.3 cm LV Systolic Diameter PLAX 2.8 cm IVS Diastolic Thickness 1.6 cm 0.6 - 1.0 / 0.6 - 0.9 cm LVPW Diastolic Thickness 1.3 cm 0.6 - 1.0 / 0.6 - 0.9 cm LV Relative Wall Thickness 0.7 LVOT Diameter 1.9 cm DOPPLER AV Peak Velocity 234.3 cm/s AV Peak Gradient 22.0 mmHg AV Mean Velocity 179.2 cm/s AV Mean Gradient 13.8 mmHg AV Velocity Time Integral 52.1 cm LVOT Peak Velocity 158.0 cm/s LVOT Peak Gradient 10.0 mmHg LVOT Velocity Time Integral 36.9 cm LVOT Stroke Volume 107.5 cm??? LVOT Stroke Volume Index 55.7 ml/m??? LVOT Cardiac Index 4079.2 cm???/min???m??? AV Area Cont Eq vti 2.1 cm??? AV Area Cont Eq pk 2.0 cm??? MV Peak Velocity 165.2 cm/s MV Peak Gradient 10.9 mmHg MV Mean Velocity 104.8 cm/s MV Mean Gradient 4.9 mmHg MV Velocity Time Integral 44.0 cm MV Area PHT 2.4 cm??? Mitral E Point Velocity 119.3 cm/s Mitral A Point Velocity 164.1 cm/s Mitral E to A Ratio 0.7 MV Deceleration Time 264.3 ms TR Peak Velocity 258.7 cm/s TR Peak Gradient 26.8 mmHg Right Atrial Pressure 8.0 mmHg Pulmonary Artery Systolic Pressu 34.8 mmHg Right Ventricular Systolic Press 34.8 mmHg FINDINGS Left Ventricle Left ventricular cavity size normal. Normal left ventricular systolic function. Left ventricular ejection fraction is estimated at 60 %. Right Ventricle Normal right ventricular size. Mild pulmonary hypertension. Right Atrium Normal right atrial size. Left Atrium Severe left atrial dilatation. Mitral Valve Mitral valve thickened. Moderate mitral annular calcification. Hbul-[id number] mitral regurgitation. Aortic Valve Normally functioning bioprosthetic aortic valve without stenosis with a peak velocity of 2.34 m/s, peak gradient 21.97 mmHg and a mean gradient of 13.84 mmHg. No aortic regurgitation. Tricuspid Valve Tricuspid valve not well visualized. Mild tricuspid regurgitation. Pulmonic Valve Pulmonic valve not well visualized. Pericardium No pericardial effusion. Aorta Normal size aortic root and proximal ascending aorta. CONCLUSIONS Left ventricular ejection fraction 60% RVSP 34.8 Moderate mitral calcification Normally functioning bioprosthetic aortic valve, peak velocity 2.3 m/s No aortic regurgitation, no paravalvular leak Mild tricuspid regurgitation Previewed by: Dr. Raji Rivera DO (Electronically Signed) Final Date: 09 June 2023 10:31
--- NOTE | 2023-06-09 11:06 | XR ---
EXAMINATION TYPE: XR chest 1V portable DATE OF EXAM: 06/09/2023 Comparison: 06/08/2023 Clinical History: 82-year-old female Post Operative Cardiac Surgery Findings: Endovascular aortic valve replacement. Loop recorder device projects over the left side of the heart. Heart upper limits of normal in size. Mild metastatic arch calcifications. Some mild interstitial de nsity shows improvement from prior. No consolidation or pleural effusion seen. Impression: Borderline heart size. Some mild interstitial density shows improvement from prior. No definite acute process.
[2023-06-09 11:43] LABS: Glucose,Whole Blood 234 mg/dL (70-110)
[2023-06-09 12:39] VITALS: TEMP 97.3
[2023-06-09 14:38] VITALS: BP 120/52; PULSE 72; RESP 14
--- NOTE | 2023-06-09 17:25 | P.DS ---
Providers Date of admission: 06/08/23 06:08 Expected date of discharge: 06/09/23 Attending physician: Cameron Butterfield Consults: 06/08/23 06:00 Consult to Anesthesia Routine Consulting Provider: Anesthesia,Services Consult Reason/Comments: Cardiac Surgery Pre-Op 06/08/23 08:53 Consult Physician Routine Consulting Provider: Vinnie Walker Consult Reason/Comments: post TAVR Do you want consulting provider notified?: Already Contacted Primary care physician: Braulio Caballero [facility] Course: MEDICAL HISTORY: 1. Calcified aortic valve with severe symptomatic aortic valve stenosis, NYHA class II 2. Hypertension 3. Hyperlipidemia 4. Diabetes mellitus 5. Paroxysmal atrial fibrillation status post ablation more than 14 years ago, not on anticoagulation 6. Breast cancer 20 years ago 7. Lifelong nonsmoker PROCEDURE: 1. Percutaneous aortic valve implantation using a 26 mm Evolut FX under GISELE and fluoroscopy guidance 2. Transesophageal echocardiography performed by anesthesia 3. Ultrasound-guided access and repair of lateral femoral artery access sites by Perclose closure device and Angio-Seal device 4. Placement of temporary pacemaker wire 5. Balloon angioplasty of the right common femoral artery HISTORY OF PRESENT ILLNESS: This is a 82-year-old gentleman who follows on an outpatient basis with Dr. Caballero for primary care and Dr. Walker for cardiology. She has a known history of severe aortic stenosis and has been symptomatic with increased exertional dyspnea as well as occasional chest pain and fatigue. She had been referred to structural heart clinic for evaluation for transcatheter aortic valve replacement after heart catheterization and transesophageal echocardiogram were completed. Echocardiography demonstrated normal systolic function with EF 55-60%, aortic valve area 0.55 cm with a peak/mean gradient 118/80 mmHg. Heart catheterization showed no obstructive coronary artery disease. After workup was completed STS risk score was calculated along with incremental risk and the patient was felt to be high risk for surgical aortic valve replacement, therefore transcatheter aortic valve replacement was recommended. The usual course of TAVR was discussed in detail the patient, risks and benefits were reviewed, shared decision making between cardiology, surgery, and the patient/family took place, and the patient consented to proceed with the procedure. HOSPITAL COURSE: The patient was brought to the hospital on 06/08/23, was taken to the extended stay area, prepared in the usual fashion, and subsequently taken to the cardiac catheterization laboratory where Dr. Butterfield and Dr. Walker completed TAVR procedure under general anesthesia with fluoroscopy and GISELE. The valve was deployed under rapid ventricular pacing. Upon advancing into the right ventricle the patient went into ventricular fibrillation for a few minutes requiring CPR, defibrillation and amiodarone, and the rest of the procedure proceeded without event. At the end of the procedure there was no significant gradient, hemodynamics were felt to be acceptable, and there was no evidence of significant perivalvular leak. Upon completion of the procedure the patient was extubated and was transferred to the cardiovascular intensive care unit where she was recovered and monitored hemodynamically. Her oxygen was titrated down, she was tolerating oral diet, her pain was controlled, follow-up TTE demonstrated normal left ventricular systolic function, normally functioning bioprosthetic aortic valve without stenosis, and she was ready to be discharged to home on postoperative day #1. She received written and verbal instruction regarding her medications, activity restrictions, signs and symptoms requiring physician notification, and follow-up appointments. Patient Condition at Discharge: Stable Plan - Discharge Summary Discharge Rx Participant: No New Discharge Prescriptions: New Sennosides-Docusate Sodium [Senokot-S] 2 each PO HS PRN tab PRN Reason: Constipation Magnesium Oxide [Mag-Ox] 400 mg PO BID #60 tab Acetaminophen Tab [Tylenol] 650 mg PO Q4HR PRN tab PRN Reason: Fever And/ Or Mild Pain (1-3) Continue Calcium Carbonate [Tums] 1,177 mg PO DAILY Cholecalciferol [Vitamin D3 (25 Mcg = 1000 Iu)] 50 mcg PO DAILY Ammonium Lactate Lotion [Lac-Hydrin 12% Lotion] 1 applic TOPICAL BID PRN PRN Reason: Itching amLODIPine [Norvasc] 2.5 mg PO BID 30 Days #60 tab metFORMIN HCL [Glucophage] 1,000 mg PO BID #0 L.acidoph,Paracasei, B.lactis [Probiotic] 1 cap PO DAILY Albuterol Sulfate [Albuterol Sulfate Hfa] 2 puff PO RT-Q6H PRN PRN Reason: Shortness Of Breath Glimepiride [Amaryl] 6 mg PO HS Glimepiride [Amaryl] 2 mg PO DAILY carvediloL [Coreg] 12.5 mg PO BID Atorvastatin Calcium [Lipitor] 40 mg PO HS Vit C/E/Zn/Coppr/Lutein/Zeaxan [Preservision Areds 2 Softgel] 1 cap PO BID Isosorbide Mononitrate ER [Imdur] 30 mg PO QAM Clopidogrel [Plavix] 75 mg PO QAM Levocetirizine Dihydrochloride [Xyzal] 5 mg PO HS Olopatadine HCl [Pataday Once Daily Relief] 1 drop BOTH EYES DAILY PRN PRN Reason: eyes itching Discontinued Magnesium 250 mg PO DAILY Discharge Medication List Albuterol Sulfate [Albuterol Sulfate Hfa] 2 puff PO RT-Q6H PRN 10/21/22 [History] Ammonium Lactate Lotion [Lac-Hydrin 12% Lotion] 1 applic TOPICAL BID PRN 10/21/22 [History] Atorvastatin Calcium [Lipitor] 40 mg PO HS 10/21/22 [History] Calcium Carbonate [Tums] 1,177 mg PO DAILY 10/21/22 [History] Cholecalciferol [Vitamin D3 (25 Mcg = 1000 Iu)] 50 mcg PO DAILY 10/21/22 [History] Glimepiride [Amaryl] 2 mg PO DAILY 10/21/22 [History] Glimepiride [Amaryl] 6 mg PO HS 10/21/22 [History] L.acidoph,Paracasei, B.lactis [Probiotic] 1 cap PO DAILY 10/21/22 [History] Vit C/E/Zn/Coppr/Lutein/Zeaxan [Preservision Areds 2 Softgel] 1 cap PO BID 10/21/22 [History] carvediloL [Coreg] 12.5 mg PO BID 10/21/22 [History] amLODIPine [Norvasc] 2.5 mg PO BID 30 Days #60 tab 10/23/22 [Rx] Clopidogrel [Plavix] 75 mg PO QAM 05/30/23 [History] Isosorbide Mononitrate ER [Imdur] 30 mg PO QAM 05/30/23 [History] Levocetirizine Dihydrochloride [Xyzal] 5 mg PO HS 05/30/23 [History] Olopatadine HCl [Pataday Once Daily Relief] 1 drop BOTH EYES DAILY PRN 05/30/23 [History] Acetaminophen Tab [Tylenol] 650 mg PO Q4HR PRN tab 06/09/23 [Rx] Magnesium Oxide [Mag-Ox] 400 mg PO BID #60 tab 06/09/23 [Rx] Sennosides-Docusate Sodium [Senokot-S] 2 each PO HS PRN tab 06/09/23 [Rx] metFORMIN HCL [Glucophage] 1,000 mg PO BID #0 06/09/23 [Rx] Follow up Appointment(s)/Referral(s): Werner Walker MD [STAFF PHYSICIAN] - 06/17/23 10:15 am (Your appointment 06/17 is for groin check. You also have a 30 day post TAVR appointment with Dr. Walker and echocardiogram 08/09/23 @3:15 pm, as well as a 1 year post TAVR appointment with Dr. Walker and echocardiogram 05/09/24 @ 1 pm.) [facility] [NON-STAFF] - 08/09/23 2:45 pm (Your 30 day post TAVR appointment at the valve clinic is 08/09/23 @ 2:45 pm, and your 1 year post TAVR appointment at the valve clinic is 05/09/24 @ 12:30 pm) Braulio Caballero MD [Primary Care Provider] - As Needed Ambulatory/Diagnostic Orders: Basic Metabolic Panel [LAB.AMB] Location: None Selected Basic Metabolic Panel [LAB.AMB] Location: None Selected Complete Blood Count w/diff [LAB.AMB] Location: None Selected Complete Blood Count w/diff [LAB.AMB] Location: None Selected Activity/Diet/Wound Care/Special Instructions: DISCHARGE INSTRUCTIONS: 1. No driving for 1 week, or until physician gives their ok. 2. No lifting, pushing, or pulling more than 5-10 pounds for 1 week. 3. Hold both groins when you cough or sneeze for the next 2 weeks. Bruising is common, but report increased swelling, pain or fever >101F 4. Shower daily. No pool, hot tub, or bathtub for 1 week 5. No powders, lotions, ointments on incisions. 6. No straining, including for bowel movements. Use stool softner if necessary 7. Stairs are not an issue. Go slowly, using handrail and take 1 step at a time. Ambulate several times daily 8. Continue pain control per as needed orders. 9. Take only the medications listed on your discharge form 10. Eat low salt (limited to 2 grams or 2000 milligrams) daily, avoid adding salt, avoid canned/processed foods 11. Take your weight daily in the morning and record, bring with you to your follow up appointments 12. Keep all follow up appointments. You will need a valve clinic appointment at 30 days and 1 year post procedure for follow up 13. You have been referred to and are expected to begin Cardiac Rehab in approximately 4 weeks. 14. You will need antibiotics prior to any dental work, including cleanings, and any surgeries to prevent Endocarditis (bacterial infection in your heart) For any questions or concerns please call your valve coordinators: Hanna or Jeronimo @ Discharge Disposition: HOME SELF-CARE
== END 2023-06-09 15:14 | disposition home or self-care (01) | DRG 267 ==
LOC: 2ORMAIN 06:08 → 2SICU 12:13
PROVIDERS: ADMIT Internal Medicine Interventional Cardiology; ATTEND Internal Medicine Interventional Cardiology
PROC: 047K3ZZ Dilation of Right Femoral Artery, Percutaneous Approach (ICD-10-PCS; principal; 2023-06-08 08:00)
PROC: B246ZZ4 Ultrasonography of Right and Left Heart, Transesophageal (ICD-10-PCS; principal; 2023-06-08 08:00)
PROC: B24BZZ4 Ultrasonography of Heart with Aorta, Transesophageal (ICD-10-PCS; principal; 2023-06-08 08:00)
PROC: 02RF38Z Replacement of Aortic Valve with Zooplastic Tissue, Percutaneous Approach (ICD-10-PCS; principal; 2023-06-08 08:00)
PROC: B3101ZZ Fluoroscopy of Thoracic Aorta using Low Osmolar Contrast (ICD-10-PCS; principal; 2023-06-08 08:00)
PROC: 5A1223Z Performance of Cardiac Pacing, Continuous (ICD-10-PCS; principal; 2023-06-08 08:00)
DX: I08.2 Rheumatic disorders of both aortic and tricuspid valves (principal); Z00.6 Encounter for examination for normal comparison and control in clinical research program; D64.9 Anemia, unspecified; E78.5 Hyperlipidemia, unspecified; I10 Essential (primary) hypertension; I48.0 Paroxysmal atrial fibrillation; E66.01 Morbid (severe) obesity due to excess calories; E11.9 Type 2 diabetes mellitus without complications; Z68.34 Body mass index [BMI] 34.0-34.9, adult; Z85.3 Personal history of malignant neoplasm of breast; Z79.01 Long term (current) use of anticoagulants; I25.2 Old myocardial infarction; Z86.73 Personal history of transient ischemic attack (TIA), and cerebral infarction without residual deficits; Z88.0 Allergy status to penicillin; Z88.8 Allergy status to other drugs, medicaments and biological substances
CPT/HCPCS: 71045; 80048; 80053; 82330; 83735; 85025; 93306; 93312; 93320; 93325